=== PATIENT | female | born 1940 | race Caucasian/White ===

== ENCOUNTER 2018-07-10 14:21 | Emergency (ER) | payer MEDICARE, BC ==
[~2018-07-10] VITALS: Ht 167.6 cm; Wt 65.8 kg
--- NOTE | 2018-07-10 15:21 | PHYS DOC ---
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 Patient reports she had breakfast this morning but hadn't eaten since. Patient reports since onset of pain her symptoms have improved with pain almost subsided by the time they arrived to the ER. Patient denies nausea or vomiting. Patient denies fever or chills, urinary symptoms, swelling in extremities, chest pain or palpitations. Patient reports her and her did drive from [place] yesterday denies any symptoms yesterday or this morning. Patient reports she has colostomy left lower abdomen due to multiple polyps. Patient reports she has had more liquid stool output denies any bloody drainage. She reports she has been urinating without symptoms today. Review of Systems Review of Systems Constitutional: Denies fever or chills [] Respiratory: Denies cough or shortness of breath [] Cardiovascular: As chest pain or palpitations GI: Denies nausea, vomiting, bloody stools or diarrhea. Reports mid abdominal pain which has improved since onset : Denies dysuria or hematuria. Denies incontinence Musculoskeletal: Denies back pain or joint pain [] Integument: Denies rash or swelling Neurologic: Denies headache, focal weakness or sensory changes. Denies dizziness or lightheadedness All other systems were reviewed and found to be within normal limits, except as documented in this note. Allergies Allergies Allergies Coded Allergies Type Severity Reaction Last Updated Verified No Known Drug Allergies 07/10/18 No Physical Exam Physical Exam Constitutional: Well developed, well nourished, no acute distress, non-toxic appearance. [] HENT: Normocephalic, atraumatic, bilateral ears normal, mucous membranes pink/ moist, nose normal. [] Eyes: pupils equal, no nystagmus, conjunctiva normal, no discharge. [] Neck: Normal range of motion, no tenderness, supple Cardiovascular:Heart rate regular rhythm, no murmur [] Lungs & Thorax: Bilateral breath sounds clear to auscultation [] Abdomen: Bowel sounds normal, soft/nondistended with no rigidity, no tenderness on palpation, no masses, no pulsatile masses. Patient has colostomy left lower abdomen with green output- no blood visible. Surrounding skin at colostomy site NL Skin: Warm, dry, no erythema, no rash. [] Back: No tenderness, no CVA tenderness. [] Extremities: No tenderness, no cyanosis, no clubbing, ROM intact, no edema. [] Neurologic: Alert and oriented X 3, normal motor function, normal sensory function, no focal deficits noted. [] Psychologic: Affect normal, judgement normal, mood normal. [] Current Patient Data Vital Signs Vital Signs Date Time Temp Pulse Resp B/P (MAP) Pulse Ox O2 Delivery O2 Flow Rate FiO2 07/10/18 17:00 66 15 99 Room Air 07/10/18 14:25 98.0 98.0 Lab Values Laboratory Tests Test 07/10/18 14:42 07/10/18 15:28 Urine Collection Type Void Urine Color Yellow Urine Clarity Clear Urine pH 5.5 Urine Specific [place] 1.010 Urine Protein Negative mg/dL (NEG-TRACE) Urine Glucose (UA) Negative mg/dL (NEG) Urine Ketones (Stick) Negative mg/dL (NEG) Urine Blood Negative (NEG) Urine Nitrite Negative (NEG) Urine Bilirubin Negative (NEG) Urine Urobilinogen Dipstick 0.2 mg/dL (0.2 mg/dL) Urine Leukocyte Esterase Small (NEG) Urine RBC 0 /HPF (0-2) Urine WBC Occ /HPF (0-4) Urine Squamous Epithelial Cells Occ /LPF Urine Bacteria 0 /HPF (0-FEW) White Blood Count 5.2 x10^3/uL (4.0-11.0) Red Blood Count 3.74 x10^6/uL (3.50-5.40) Hemoglobin 11.1 g/dL (12.0-15.5) L Hematocrit 33.0 % (36.0-47.0) L Mean Corpuscular Volume 88 fL (79-100) Mean Corpuscular Hemoglobin 30 pg (25-35) Mean Corpuscular Hemoglobin Concent 34 g/dL (31-37) Red Cell Distribution Width 13.5 % (11.5-14.5) Platelet Count 151 x10^3/uL (140-400) Neutrophils (%) (Auto) 65 % (31-73) Lymphocytes (%) (Auto) 24 % (24-48) Monocytes (%) (Auto) 8 % (0-9) Eosinophils (%) (Auto) 3 % (0-3) Basophils (%) (Auto) 1 % (0-3) Neutrophils # (Auto) 3.4 x10^3uL (1.8-7.7) Lymphocytes # (Auto) 1.3 x10^3/uL (1.0-4.8) Monocytes # (Auto) 0.4 x10^3/uL (0.0-1.1) Eosinophils # (Auto) 0.1 x10^3/uL (0.0-0.7) Basophils # (Auto) 0.0 x10^3/uL (0.0-0.2) Sodium Level 136 mmol/L (136-145) Potassium Level 4.1 mmol/L (3.5-5.1) Chloride Level 100 mmol/L (98-107) Carbon Dioxide Level 24 mmol/L (21-32) Anion Gap 12 (6-14) Blood Urea Nitrogen 24 mg/dL (7-20) H Creatinine 1.9 mg/dL (0.6-1.0) H Estimated GFR (Cockcroft-Gault) 25.5 BUN/Creatinine Ratio 13 (6-20) Glucose Level 122 mg/dL (70-99) H Calcium Level 9.2 mg/dL (8.5-10.1) Total Bilirubin 0.5 mg/dL (0.2-1.0) Aspartate Amino Transferase (AST) 29 U/L (15-37) Alanine Aminotransferase (ALT) 21 U/L (14-59) Alkaline Phosphatase 80 U/L (46-116) Troponin I Quantitative 0.026 ng/mL (0.000-0.055) Total Protein 7.3 g/dL (6.4-8.2) Albumin 3.9 g/dL (3.4-5.0) Albumin/Globulin Ratio 1.1 (1.0-1.7) Lipase 367 U/L (73-393) Laboratory Tests 07/10/18 15:28 Laboratory Tests 07/10/18 15:28 EKG EKG [] Radiology/Procedures Radiology/Procedures PROCEDURE: ACUTE ABDOMEN SERIES EXAM: Frontal view of the chest, AP views of the abdomen in upright and supine positions. CLINICAL INDICATION: ER PATIENT. UMBILICAL PAIN. Hx COLON RESECTION, COLONOSTOMY, HERNIA REPAIR, HYSTERECTOMY, APPENDECTOMY, CARDIAC LOOP RECORDER PLACED 9 MONTHS AGO. NO PRIORS COMPARISON: None. FINDINGS and IMPRESSION: Heart is mildly enlarged. Atherosclerotic calcifications of the tortuous aorta are seen. Cardiac device projects over the anterior left chest. Mild emphysematous changes with hyperexpansion of the lungs. No focal parenchymal airspace opacity. No pleural effusion or pneumothorax. No abnormal small or large bowel dilatation, no evidence for bowel obstruction. Moderate colonic stool content. No abnormal soft tissue mass effect. Left lower quadrant ostomy is seen. No suspicious calcifications are seen. No free intraperitoneal gas. Electronically signed by: Stu Barahona MD (07/10/2018 5:36 PM) [id number] DICTATED and SIGNED BY: STU BARAHONA MD DATE: 07/10/18 173 Course & Med Decision Making Course & Med Decision Making Pertinent Labs and Imaging studies reviewed. (See chart for details) 1600: On re-eval pt continues to deny any abd. pain and is in no visible distress. Discussed test results with pt and her family- UA unremarkable and labs show renal function to be low which pt reports her last GFR was at 24 so similar today. During discussion patient's daughter voices concerns as patient' s abdominal pain had radiated around to her lower back. This was not mentioned during initial exam and so further discussion patient does state her pain and lower abdomen radiated into lower back at the time of onset. Patient denies any lower back pain at this time. Patient's family is wanting additional testing done to further rule out acute cause of patient's symptoms. EKG will be obtained as patient also had not mentioned during initial exam that she had implanted loop monitor and an patient's daughter is wanting her to have EKG while in the ER. With additional information orders placed for acute abdomen series, and EKG, and troponin added to blood test. 1750: Discussed results of all tests indepth with pt and her family. EKG with no acute ST elevation/STEMI and troponin NL at 0.026. Acute abd xray with no acute findings for obstruction- moderate stool and again discussed increasing fld intake while on trip. Discussed CBC with NL WBCs at 5.2 no left shift and H& H 11.1/33.0. Pt at this time pt reports she has hx of anemia which she hadn't disclosed during initial exam. Pt is uncertain what her H&H has been in past. Pt continues to deny any abd pain, CP, palpitations, or lower back pain. Pt while in ER had PVCs on the front desk monitor- she has implanted LOOP monitor for past hx of syncope but is uncertain of hx of PVCs. Discussed her following up with her back tender insulation board when she returns home to discuss this further. At this time patient and her family all feel comfortable with home discharge without further testing as patient remains pain-free. Discharge instructions were discussed and education provided on signs and symptoms to return to ER for. At time of discussion patient is in no visible distress and remains nontoxic in appearance. Pt's case and plan of care was discussed with Dr. Giraldo. Kodak Disclaimer Kodak Disclaimer This electronic medical record was generated, in whole or in part, using a voice recognition dictation system. Departure Departure Impression: Primary Impression: Abdominal pain Disposition: 01 HOME, SELF-CARE Condition: STABLE Patient Instructions: Abdominal Pain Additional Instructions: Drink plenty of water. If symptoms worsen or with any concerns return to Emergency Department for further care/evaluation. LILO GOMEZ APRN Jul 10, 2018 15:21
[2018-07-10 15:36] LABS: BASO % 1 % (0-3); EOS # 0.1 x10^3/uL (0.0-0.7); EOS % 3 % (0-3); HEMOGLOBIN 11.1 g/dL (12.0-15.5); LYMPH # 1.3 x10^3/uL (1.0-4.8); LYMPH % 24 % (24-48); MEAN CORPUSCULAR HEMOGLOBIN 30 pg (25-35); MEAN CORPUSCULAR HGB CONC 34 g/dL (31-37); MEAN CORPUSCULAR VOLUME 88 fL (79-100); MONO # 0.4 x10^3/uL (0.0-1.1); MONO % 8 % (0-9); NEUT # 3.4 x10^3uL (1.8-7.7); NEUT % 65 % (31-73); PLATELET COUNT 151 x10^3/uL (140-400); RED BLOOD COUNT 3.74 x10^6/uL (3.50-5.40); RED CELL DISTRIBUTION WIDTH 13.5 % (11.5-14.5); WHITE BLOOD COUNT 5.2 x10^3/uL (4.0-11.0)
[2018-07-10 15:38] LABS: BILIRUBIN,URINE NEGATIVE (NEG); CLARITY,URINE CLEAR; COLOR,URINE YELLOW; NITRITE,URINE NEGATIVE (NEG); PH,URINE 5.5; PROTEIN,URINE NEGATIVE (NEG-TRACE); UROBILINOGEN,URINE 0.2 mg/dL (0.2 mg/dL)
[2018-07-10 15:44] LABS: CALCIUM 9.2 mg/dL (8.5-10.1); CREATININE 1.9 mg/dL (0.6-1.0); GFR 25.5; POTASSIUM 4.1 mmol/L (3.5-5.1)
[2018-07-10 15:50] LABS: ALBUMIN 3.9 g/dL (3.4-5.0); ALBUMIN/GLOBULIN RATIO 1.1 (1.0-1.7); TOTAL BILIRUBIN 0.5 mg/dL (0.2-1.0); TOTAL PROTEIN 7.3 g/dL (6.4-8.2)
[2018-07-10 15:53] LABS: BACTERIA,URINE 0 /HPF (0-FEW); RBC,URINE 0 /HPF (0-2); SQUAMOUS EPITHELIAL CELL,UR OCC /LPF; WBC,URINE OCC /HPF (0-4)
--- NOTE | 2018-07-10 16:22 | EKG ---
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
[2018-07-10 16:30] VITALS: BP 135/62
--- NOTE | 2018-07-10 17:39 | RAD ---
EXAM: Frontal view of the chest, AP views of the abdomen in upright and supine positions. CLINICAL INDICATION: ER PATIENT. UMBILICAL PAIN. Hx COLON RESECTION, COLONOSTOMY, HERNIA REPAIR, HYSTERECTOMY, APPENDECTOMY, CARDIAC LOOP RECORDER PLACED 9 MONTHS AGO. NO PRIORS COMPARISON: None. FINDINGS and IMPRESSION: Heart is mildly enlarged. Atherosclerotic calcifications of the tortuous aorta are seen. Cardiac device projects over the anterior left chest. Mild emphysematous changes with hyperexpansion of the lungs. No focal parenchymal airspace opacity. No pleural effusion or pneumothorax. No abnormal small or large bowel dilatation, no evidence for bowel obstruction. Moderate colonic stool content. No abnormal soft tissue mass effect. Left lower quadrant ostomy is seen. No suspicious calcifications are seen. No free intraperitoneal gas. Electronically signed by: Stu Barahona MD (07/10/2018 5:36 PM) [id number]
== END 2018-07-10 17:54 | disposition home or self-care (01) ==
LOC: ER 14:21
DX: R10.9 Unspecified abdominal pain (principal); R19.7 Diarrhea, unspecified; N28.9 Disorder of kidney and ureter, unspecified; Z90.89 Acquired absence of other organs; Z90.710 Acquired absence of both cervix and uterus; Z98.890 Other specified postprocedural states; Z93.3 Colostomy status
CPT/HCPCS: 36415; 74022; 80053; 81001; 83690; 84484; 85025; 87086; 93005; 99285-25

== ENCOUNTER → 2019-11-03 | Outpatient (CLI) | payer MEDICARE, BC ==
--- NOTE | 2019-11-03 11:58 | CARD ---
MR#: [id number] Date of Study: 11/03/2019 Ordering Physician: JANNET LEYVA, Referring Physician: JANNET LEYVA, Tech: Marion Soni APPROVED REPORT EXAM: Two-dimensional and M-mode echocardiogram with Doppler and color Doppler. Other Information Quality : AverageHR: 86bpm Technically limited study due to body habitus. INDICATION Syncope 2D DIMENSIONS RVDd2.7 (2.9-3.5cm)Left Atrium(2D)3.7 (1.6-4.0cm) IVSd1.3 (0.7-1.1cm)Aortic Root(2D)4.3 (2.0-3.7cm) LVDd4.6 (3.9-5.9cm)LVOT Diameter2.4 (1.8-2.4cm) PWd1.1 (0.7-1.1cm)LVDs3.3 (2.5-4.0cm) FS (%) 28.7 %SV54.0 ml LVEF(%)55.3 (>50%) Aortic Valve AoV Peak Kaleb.117.3cm/sAoV VTI22.2cm AO Peak GR.5.5mmHgLVOT Peak Kaleb.81.6cm/s LVOT VTI 18.33cmAO Mean GR.3mmHg ROHAN (VMAX)2.66xo5JYW (VTI)3.73cm2 AI P 1/2 Yjfk936em Mitral Valve MV E Pwdvbxpd55.7cm/sMV DECEL FGPF483ye MV A Sjmartwg00.4cm/sMV E Mean Gr.1mmHg MV WZN63ffH/A Ratio0.5 MVA (PHT)2.96cm2 TDI E/Lateral E'9.7E/Medial E'8.8 Pulmonary Valve PV Peak Dxjlbvsz20.3cm/sPV Peak Grad.2mmHg Tricuspid Valve TR P. Rludshsw549yq/sRAP DXAJRGTM5imYe TR Peak Gr.78tnCcVUQX22ppLl Pulmonary Vein S1 Zyotqoqb14.1cm/sD2 Xvulptbw74.3cm/s PVa rutjjicr294vwez LEFT VENTRICLE The left ventricle is normal size. There is mild to moderate concentric left ventricular hypertrophy. The left ventricular systolic function is low normal. EF 50% There is mild global hypokinesis. Trans mitral Doppler flow pattern is Grade I-abnormal relaxation pattern. RIGHT VENTRICLE The right ventricle is normal size. There is normal right ventricular wall thickness. The right ventr icular systolic function is normal. ATRIA The left atrium size is normal. The right atrium size is normal. The interatrial septum is intact wit h no evidence for an atrial septal defect or patent foramen ovale as noted on 2-D or Doppler imaging. AORTIC VALVE The aortic valve is normal in structure and function. Doppler and Color Flow revealed mild to moderat e aortic regurgitation. There is no significant aortic valvular stenosis. MITRAL VALVE The mitral valve is normal in structure and function. There is no evidence of mitral valve prolapse. There is no mitral valve stenosis. Doppler and Color-flow revealed trace mitral regurgitation. TRICUSPID VALVE The tricuspid valve is normal in structure and function. Doppler and Color Flow revealed trace tricus pid regurgitation with an estimated PAP of 24 mmHg. There is no tricuspid valve stenosis. PULMONIC VALVE The pulmonic valve is not well visualized. Doppler and Color Flow revealed trace pulmonic valvular re gurgitation. There is no pulmonic valvular stenosis. GREAT VESSELS The aortic root is normal in size. The IVC is normal in size and collapses >50% with inspiration. PERICARDIAL EFFUSION There is no evidence of significant pericardial effusion. Critical Notification Critical Value: No <Conclusion> The left ventricular systolic function is low normal. EF 50% There is mild global hypokinesis. Doppler and Color Flow revealed mild to moderate aortic regurgitation. Technically limited study. Signed by : Coleman Starks, Electronically Approved : 11/03/2019 11:57:54
== END | disposition home or self-care (01) ==
LOC: ECHO 10:27
PROVIDERS: ATTEND Internal Medicine Cardiovascular Disease
DX: I35.1 Nonrheumatic aortic (valve) insufficiency (principal); I51.7 Cardiomegaly
CPT/HCPCS: 93306

== ENCOUNTER 2019-11-05 17:12 | Emergency (ER) | payer MEDICARE, BC ==
[~2019-11-05] VITALS: Ht 167.6 cm; Wt 70.4 kg
--- NOTE | 2019-11-05 18:47 | PHYS DOC ---
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 She has underlying history of chronic kidney disease. She states she woke this morning at 5 AM had difficulty focusing, have visual changes, last normal last night prior to bed. She states she went back to bed this morning awoke around 7:30 in her vision was normal. She denied any speech difficulty, unilateral numbness or tingling, no focal deficit. She does describe an episode of dizziness last week. Patient presented to the emergency department today given concern for possible stroke or TIA. Patient is on no blood thinning medications.She is currently asymptomatic at this time Review of Systems Review of Systems Constitutional: Denies fever or chills [] Eyes: blurry vision/visual disturbance this am however resolved, no redness, or eye pain [] Respiratory: Denies cough or shortness of breath [] Cardiovascular: No additional information not addressed in HPI [] GI: Denies abdominal pain, nausea, vomiting, bloody stools or diarrhea [] : Denies dysuria or hematuria [] Musculoskeletal: Denies back pain or joint pain [] Neurologic: Denies headache, focal weakness or sensory changes [] All other systems were reviewed and found to be within normal limits, except as documented in this note. Allergies Allergies Allergies Coded Allergies Type Severity Reaction Last Updated Verified No Known Drug Allergies 07/10/18 No Physical Exam Physical Exam Constitutional: Well developed, well nourished, no acute distress, non-toxic appearance. [] HENT: Normocephalic, atraumatic, bilateral external ears normal, oropharynx moist, no oral exudates, nose normal. [] Eyes: PERRLA, EOMI, conjunctiva normal, no discharge. [] Neck: Normal range of motion, no tenderness, supple, no stridor. [] Cardiovascular:Heart rate regular rhythm, no murmur [] Lungs & Thorax: Bilateral breath sounds clear to auscultation [] Abdomen: Bowel sounds normal, soft, no tenderness, no masses, no pulsatile masses. [] Skin: Warm, dry, no erythema, no rash. [] Extremities: No tenderness, no edema. [] Neurologic: Alert and oriented X 3, no focal deficits noted. [] Psychologic: Affect normal, judgement normal, mood normal. [] Current Patient Data Vital Signs Vital Signs Date Time Temp Pulse Resp B/P (MAP) Pulse Ox O2 Delivery O2 Flow Rate FiO2 11/05/19 19:00 98.6 86 16 148/75 (99) 96 Room Air 98.6 Lab Values Laboratory Tests Test 11/05/19 18:53 White Blood Count 6.4 x10^3/uL (4.0-11.0) Red Blood Count 3.86 x10^6/uL (3.50-5.40) Hemoglobin 11.3 g/dL (12.0-15.5) L Hematocrit 34.0 % (36.0-47.0) L Mean Corpuscular Volume 88 fL (79-100) Mean Corpuscular Hemoglobin 29 pg (25-35) Mean Corpuscular Hemoglobin Concent 33 g/dL (31-37) Red Cell Distribution Width 13.5 % (11.5-14.5) Platelet Count 162 x10^3/uL (140-400) Neutrophils (%) (Auto) 63 % (31-73) Lymphocytes (%) (Auto) 26 % (24-48) Monocytes (%) (Auto) 8 % (0-9) Eosinophils (%) (Auto) 2 % (0-3) Basophils (%) (Auto) 1 % (0-3) Neutrophils # (Auto) 4.1 x10^3/uL (1.8-7.7) Lymphocytes # (Auto) 1.7 x10^3/uL (1.0-4.8) Monocytes # (Auto) 0.5 x10^3/uL (0.0-1.1) Eosinophils # (Auto) 0.1 x10^3/uL (0.0-0.7) Basophils # (Auto) 0.0 x10^3/uL (0.0-0.2) Sodium Level 137 mmol/L (136-145) Potassium Level 4.0 mmol/L (3.5-5.1) Chloride Level 102 mmol/L (98-107) Carbon Dioxide Level 23 mmol/L (21-32) Anion Gap 12 (6-14) Blood Urea Nitrogen 32 mg/dL (7-20) H Creatinine 2.1 mg/dL (0.6-1.0) H Estimated GFR (Cockcroft-Gault) 22.7 BUN/Creatinine Ratio 15 (6-20) Glucose Level 116 mg/dL (70-99) H Calcium Level 8.7 mg/dL (8.5-10.1) Total Bilirubin Pending Aspartate Amino Transferase (AST) Pending Alanine Aminotransferase (ALT) Pending Alkaline Phosphatase Pending Total Protein Pending Albumin Pending Albumin/Globulin Ratio Pending Laboratory Tests 11/05/19 18:53 Laboratory Tests 11/05/19 18:53 EKG EKG [] Radiology/Procedures Radiology/Procedures [facility] [address] [place], [place] [id number] IMAGING REPORT Signed PATIENT: LORA EUGENE KACCOUNT: [id number] : 1940 LOCATION: ER AGE: 79 SEX: F EXAM STATUS: REG ER ORD. PHYSICIAN: ANISA JOHN MD REASON: Visual change - resolved PROCEDURE: CT HEAD WO CONTRAST EXAM: CT Head without IV contrast CLINICAL HISTORY: Visual Changes COMPARISON: None. TECHNIQUE: Routine CT of the head without contrast. Soft tissues and bone windows were reviewed. PQRS compliance statement - One or more of the following individualized dose reduction techniques were utilized for this study: 1. Automated exposure control 2. Adjustment of the mA and/or kV according to patient size 3. Use of iterative reconstruction technique FINDINGS: There is no evidence of hemorrhage, mass or extra-axial fluid collection. Vargas-white differentiation is maintained with no evidence of edema. Subcortical and periventricular white matter hypoattenuation likely changes of chronic small vessel disease. There is no mass effect or shift of the intracranial structures. The ventricles, basilar cisterns and cortical sulci are normal in size and configuration for the patients stated age. The cerebellum and brainstem are unremarkable. The calvarium demonstrates no evidence of fracture or focal lesion. There is normal aeration of the visualized paranasal sinuses and mastoid air cells. The visualized portions of the orbits are normal. IMPRESSION: 1. No evidence for acute intracranial process. 2. White matter changes likely chronic small vessel disease. Electronically signed by: Stu Matthews MD (11/05/2019 7:12 PM) [id number] DICTATED and SIGNED BY: STU MATTHEWS MD DATE: 11/05/191911 [] Course & Med Decision Making Course & Med Decision Making Pertinent Labs and Imaging studies reviewed. (See chart for details) [] 79-year-old female presents to the emergency department with complaints of visual changes. She has underlying history of chronic kidney disease. She states she woke this morning at 5 AM had difficulty focusing, have visual changes, last normal last night prior to bed. She states she went back to bed this morning awoke around 7:30 in her vision was normal. She denied any speech difficulty, unilateral numbness or tingling, no focal deficit. She does describe an episode of dizziness last week. Patient presented to the emergency department today given concern for possible stroke or TIA. Patient is on no blood thinning medications.She is currently asymptomatic at this time Labs/Imaging reviewed CT head negative for acute process - chronic small vessel changes ABCD2 score 2, low risk - discussed with patient Recommend follow up with PCP/Neurology referral/Opthomology referral ASA 325mg daily Dragon Disclaimer Dragon Disclaimer This electronic medical record was generated, in whole or in part, using a voice recognition dictation system. NIHSS Stroke Scale NIH Stroke Scale: NIH Stroke Scale Response (Comments) Value Level of Consciousness: 0 Alert/Responsive 0 LOC Questions: 0 Answers both correctly 0 LOC Commands: 0 Performs both tasks 0 Best Gaze: 0 Normal 0 Visual: 0 No visual loss 0 Facial Palsy: 0 Normal, symmetrical 0 Motor - Left Arm 0 No drift 0 Motor - Right Arm 0 No drift 0 Motor - Left Leg 0 No drift 0 Motor: Right Leg 0 No drift 0 Limb Ataxia: 0 Absent 0 Sensory: 0 No loss 0 Best Language: 0 Normal 0 Dysathria: 0 Normal 0 Extinction and Inattention: 0 Normal 0 Total 0 Departure Departure Impression: Primary Impression: Changes in vision Additional Impression: CKD (chronic kidney disease) Disposition: 01 HOME, SELF-CARE Condition: STABLE Referrals: ANDREAS VARNER DO (PCP) MERRILL SWEENEY MD Patient Instructions: Eye - Blurred Vision, Transient Ischemic Attack, Kfor-jw-Tbgu Additional Instructions: CT of the head without acute changes - chronic small vessel changes appreciated Creat 2.1 (kidney function) Recommend ASA 325mg po daily Referral for neurology follow up Recommend follow up with Optho for eye exam as well Low risk 90 day stroke risk of 3% Return to ER for returning symptoms, unilateral weakness/motor dysfunction, speech difficulty, vision changes Problem Qualifiers Additional Impression: CKD (chronic kidney disease) Chronic kidney disease stage: stage 3 (moderate) Qualified Codes: N18.3 - Chronic kidney disease, stage 3 (moderate) ANISA JOHN MD Nov 05, 2019 18:47
[2019-11-05 18:59] LABS: BASO % 1 % (0-3); EOS # 0.1 x10^3/uL (0.0-0.7); EOS % 2 % (0-3); HEMOGLOBIN 11.3 g/dL (12.0-15.5); LYMPH # 1.7 x10^3/uL (1.0-4.8); LYMPH % 26 % (24-48); MEAN CORPUSCULAR HEMOGLOBIN 29 pg (25-35); MEAN CORPUSCULAR HGB CONC 33 g/dL (31-37); MEAN CORPUSCULAR VOLUME 88 fL (79-100); MONO # 0.5 x10^3/uL (0.0-1.1); MONO % 8 % (0-9); NEUT # 4.1 x10^3/uL (1.8-7.7); NEUT % 63 % (31-73); PLATELET COUNT 162 x10^3/uL (140-400); RED BLOOD COUNT 3.86 x10^6/uL (3.50-5.40); RED CELL DISTRIBUTION WIDTH 13.5 % (11.5-14.5); WHITE BLOOD COUNT 6.4 x10^3/uL (4.0-11.0)
[2019-11-05 19:00] VITALS: BP 148/75
--- NOTE | 2019-11-05 19:14 | RAD ---
EXAM: CT Head without IV contrast CLINICAL HISTORY: Visual Changes COMPARISON: None. TECHNIQUE: Routine CT of the head without contrast. Soft tissues and bone windows were reviewed. PQRS compliance statement - One or more of the following individualized dose reduction techniques were utilized for this study: 1. Automated exposure control 2. Adjustment of the mA and/or kV according to patient size 3. Use of iterative reconstruction technique FINDINGS: There is no evidence of hemorrhage, mass or extra-axial fluid collection. Vargas-white differentiation is maintained with no evidence of edema. Subcortical and periventricular white matter hypoattenuation likely changes of chronic small vessel disease. There is no mass effect or shift of the intracranial structures. The ventricles, basilar cisterns and cortical sulci are normal in size and configuration for the patients stated age. The cerebellum and brainstem are unremarkable. The calvarium demonstrates no evidence of fracture or focal lesion. There is normal aeration of the visualized paranasal sinuses and mastoid air cells. The visualized portions of the orbits are normal. IMPRESSION: 1. No evidence for acute intracranial process. 2. White matter changes likely chronic small vessel disease. Electronically signed by: Stu Barahona MD (11/05/2019 7:12 PM) [id number]
[2019-11-05 19:17] LABS: CALCIUM 8.7 mg/dL (8.5-10.1); CREATININE 2.1 mg/dL (0.6-1.0); GFR 22.7
[2019-11-05 19:21] LABS: ALBUMIN 4.1 g/dL (3.4-5.0); ALBUMIN/GLOBULIN RATIO 1.2 (1.0-1.7); TOTAL BILIRUBIN 0.4 mg/dL (0.2-1.0); TOTAL PROTEIN 7.6 g/dL (6.4-8.2)
--- NOTE | 2019-11-08 06:11 | EKG ---
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
== END 2019-11-05 19:47 | disposition home or self-care (01) ==
LOC: ER 17:12
DX: H53.9 Unspecified visual disturbance (principal); N18.3 Chronic kidney disease, stage 3 (moderate); R42 Dizziness and giddiness; Z90.89 Acquired absence of other organs; Z90.710 Acquired absence of both cervix and uterus; Z98.890 Other specified postprocedural states
CPT/HCPCS: 36415; 70450; 80053; 85025; 93005; 99285

== ENCOUNTER → 2019-12-24 | Outpatient (CLI) | payer MEDICARE, BC ==
[2019-12-24 08:39] LABS: BASO % 1 % (0-3); EOS # 0.2 x10^3/uL (0.0-0.7); EOS % 3 % (0-3); HEMATOCRIT 36.1 % (36.0-47.0); HEMOGLOBIN 11.7 g/dL (12.0-15.5); LYMPH # 1.7 x10^3/uL (1.0-4.8); LYMPH % 28 % (24-48); MEAN CORPUSCULAR HEMOGLOBIN 29 pg (25-35); MEAN CORPUSCULAR HGB CONC 32 g/dL (31-37); MEAN CORPUSCULAR VOLUME 89 fL (79-100); MONO # 0.4 x10^3/uL (0.0-1.1); MONO % 7 % (0-9); NEUT # 3.6 x10^3/uL (1.8-7.7); NEUT % 62 % (31-73); PLATELET COUNT 191 x10^3/uL (140-400); RED BLOOD COUNT 4.06 x10^6/uL (3.50-5.40); RED CELL DISTRIBUTION WIDTH 13.8 % (11.5-14.5); WHITE BLOOD COUNT 5.8 x10^3/uL (4.0-11.0)
[2019-12-24 09:01] LABS: ALBUMIN 4.2 g/dL (3.4-5.0); ALBUMIN/GLOBULIN RATIO 1.3 (1.0-1.7); CREATININE 2.5 mg/dL (0.6-1.0); GFR 18.5; POTASSIUM 4.6 mmol/L (3.5-5.1); TOTAL BILIRUBIN 0.4 mg/dL (0.2-1.0); TOTAL PROTEIN 7.5 g/dL (6.4-8.2)
[2019-12-24 09:03] LABS: CHOLESTEROL/HDL RATIO 1.9
== END ==
LOC: LAB 08:16
PROVIDERS: ATTEND Psychiatry & Neurology Neurology
DX: G45.9 Transient cerebral ischemic attack, unspecified (principal)
CPT/HCPCS: 36415; 80053; 80061; 85025

== ENCOUNTER → 2019-12-28 | Outpatient (CLI) | payer MEDICARE, BC ==
--- NOTE | 2019-12-28 10:40 | KCIC ---
BRAIN W/O CONTRAST History: CT November 05, 2019 Technique: Multiplanar, multi sequential MR imaging was performed of the brain without contrast. Comparison: November 05, 2019 Findings: No acute infarct. No intracranial hemorrhage. No mass effect. No hydrocephalus. Moderate T2 such FLAIR hyperintensities within the hemispheric white matter, most often due to chronic microvascular ischemia. Imaged orbits are unremarkable. Left posterior maxillary sinus mucous retention cyst or polyp. Mastoid air cells are clear. Impression: 1. No acute intracranial abnormality. 2. Moderate sequelae of chronic microvascular ischemia. Electronically signed by: Thang Perez DO (12/28/2019 10:37 AM) [id number]
== END | disposition home or self-care (01) ==
LOC: KCIC MRI 09:24
PROVIDERS: ATTEND Psychiatry & Neurology Neurology
DX: I69.80 Unspecified sequelae of other cerebrovascular disease (principal)
CPT/HCPCS: 70551

== ENCOUNTER → 2020-01-24 | Outpatient (CLI) | payer MEDICARE, BC ==
--- NOTE | 2020-01-24 11:08 | RAD ---
Clinical Indications: Transient ischemic attack. Exam : Carotid Duplex with Grayscale Ultrasound and Spectral and Color Doppler Analysis: PQRS Compliance Statement - Stenosis calculations for CT, MR and conventional angiography are based upon measurement of the distal ICA diameter in accordance with the NASCET methodology. Stenosis calculations for carotid ultrasound studies are derived from validated velocity criteria which are known to correlate with the NASCET methodology. Comparison study: Noncontrast head CT 11/05/2019 and MRI brain 12/28/2019.. Findings: The common, internal and external carotid arteries were examined by grayscale, color and spectral Doppler ultrasound. There is no evidence of atherosclerotic disease or significant stenosis in the visualized vessels. Flow in both vertebral arteries was antegrade and normal. The following are the velocities and ratios in the carotid arteries on both sides: RIGHT ICA PV: 82cm/sec RIGHT CCA PV: 82cm/sec RIGHT ICA ED: 60cm/sec RIGHT IC/CCPV: 1.0 RIGHT VERTEBRAL: antegrade flow RIGHT % STENOSIS: 0 LEFT ICA PV: 83cm/sec LEFT CCA PV: 72cm/sec LEFT ICA ED: 15cm/sec LEFT IC/CCPV: 1.2 LEFT VERTEBRAL: antegrade flow LEFT % STENOSIS: 0 <50% ICA Stenosis: PSV < 125cm/s (EDV < 40cm/s; SVR < 2.0) 50-69% ICA Stenosis: PSV < 125-229cm/s (EDV 40-99cm/s; SVR 2.0-3.9) >70% ICA Stenosis: PSV > 230cm/s (EDV >100cm/s; SVR >4.0) Impression: Normal bilateral carotid and vertebral artery spectral and color Doppler analysis exam. No evidence of hemodynamically significant stenosis. Electronically signed by: Omar Colmenares MD (01/24/2020 11:06 AM) [id number]
== END | disposition home or self-care (01) ==
LOC: US 09:55
PROVIDERS: ATTEND Psychiatry & Neurology Neurology
DX: G45.9 Transient cerebral ischemic attack, unspecified (principal)
CPT/HCPCS: 93880

== ENCOUNTER 2020-05-07 18:00 | Inpatient (IN) | payer MEDICARE, BC ==
[~2020-05-07] VITALS: Ht 167.6 cm; Wt 74.8 kg
--- NOTE | 2020-05-07 19:50 | PHYS DOC ---
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 HERNIA, COLOSTMY, LOOP HAND WELT BUTTER Smoking Status: Never Smoker Alcohol Use: None Drug Use: None General Adult EDM: Chief Complaint: WEAKNESS/GENERALIZED HPI: HPI: Patient is a 80 year old female who presents to the emergency department with complaints of intermittent near syncope spells just prior to arrival. Patient states that approximately 11 AM today she felt a pressure in her head while she was standing in the kitchen with the feeling that she was going to pass out, walked to a nearby chair and sat down stating that the feeling that she was going to pass out went away within a few seconds. Patient states that since the first 1 at 11 AM she has had 5 more all while she was sitting and watching TV throughout the day. Concerned that she may be having some sort of heart problem or possibly a stroke, presented to the ER. During the nursing triage, patient had an additional episode that she states was similar to her previous 6 episodes of the day. The patient happened to be attached to a awake overnight monitor and there was no cardiac activity changes noted during her near syncopal episode complaints. Patient denies any fever or chills, denies any exposure to the COVID-19 virus nor wishes to be checked today for the COVID-19 virus. Patient denies any visual changes during her near syncopal episodes. Denies any congestion or sore throat cough or shortness of breath. Patient denies any chest pains or chest palpitations now or during her near syncopal episodes. She denies any abdominal pain, nausea, vomiting, diarrhea or constipation. Patient denies any back pains skin rashes headaches focal weaknesses or sensory changes at this time. Patient describes her near syncopal episodes as there is a pres sure in her head and she feels like she may pass out. Patient denies any other feelings or aches or pains. Patient denies any swelling of her glands, any depressions, anxieties, homicidal or suicidal ideations. Patient states no one else in her home is having the same symptoms that she. Review of Systems: Review of Systems: Constitutional: Denies fever or chills. Denies exposure to the COVID-19 virus. Eyes: Denies change in visual acuity. HENT: Denies nasal congestion or sore throat. Respiratory: Denies cough or shortness of breath. Cardiovascular: Denies chest pain or edema. GI: Denies abdominal pain, nausea, vomiting, bloody stools or diarrhea. : Denies dysuria. Musculoskeletal: Denies back pain or joint pain. Integument: Denies rash. Neurologic: Denies headache, focal weakness or sensory changes. Complains of a intermittent pressure in her head with a feeling that she is going to pass out that lasts only a few seconds then returns to normal. Lymphatic: Denies swollen glands. Psychiatric: Denies depression or anxiety. Denies homicidal or suicidal ideation. Heart Score: Risk Factors: Risk Factors: DM, Current or recent (<one month) smoker, HTN, HLP, family history of CAD, obesity. Risk Scores: Score 0 - 3: 2.5% MACE over next 6 weeks - Discharge Home Score 4 - 6: 20.3% MACE over next 6 weeks - Admit for Clinical Observation Score 7 - 10: 72.7% MACE over next 6 weeks - Early Invasive Strategies Allergies: Allergies: Allergies Coded Allergies Type Severity Reaction Last Updated Verified No Known Drug Allergies 07/10/18 No Physical Exam: PE: Constitutional: Well developed, well nourished, no acute distress, non-toxic appearance. HENT: Normocephalic, atraumatic, bilateral external ears normal, oropharynx moist, no oral exudates, nose normal. Eyes: PERRLA, EOMI, conjunctiva normal, no discharge. Pupils 5 mm. Neck: Normal range of motion, no tenderness, supple, no stridor. Cardiovascular:Heart rate regular rhythm, no murmur heart sounds S1-S2, no abnormalities per auscultation. Lungs & Thorax: Bilateral breath sounds clear to auscultation all lung gonzalez. Abdomen: Bowel sounds normal, soft, no tenderness, no masses, no pulsatile mass es. Skin: Warm, dry, no erythema, no rash. Back: No tenderness, no CVA tenderness. Extremities: No tenderness, no cyanosis, no clubbing, ROM intact, no edema. Neurologic: Alert and oriented X 3, normal motor function, normal sensory function, no focal deficits noted. Psychologic: Affect normal, judgement normal, mood normal. EKG: EKG: A 12-lead EKG was performed at 1938 per ED nursing staff. Showed a heart rate of 71, sinus arrhythmia with out ectopy noted. The EKG was interpreted by Dr. Yanez, no STEMI noted, no ACS noted. Radiology/Procedures: Radiology/Procedures: PROCEDURE: CT HEAD WO CONTRAST CT HEAD WO CONTRAST History:Near syncopal episode prior to arrival Comparison: 11/05/2019 Technique: Noncontrast CT imaging was performed of the head. Exposure: One or more of the following individualized dose reduction techniques were utilized for this examination: 1. Automated exposure control 2. Adjustment of the mA and/or kV according to patient size 3. Use of iterative reconstruction technique. Findings: No acute extra-axial or parenchymal hemorrhage is identified. There is no significant intra-axial mass effect, midline shift, or extra-axial fluid collection. The sanchez-white differentiation of the major vascular territories is preserved. There is scattered at least mild ill-defined low-density of the supratentorial parenchyma bilaterally. The ventricles, sulci, and cisterns are within normal limits in size and configuration. The mastoid air cells and the visualized paranasal sinuses are aerated. No acute calvarial abnormality is identified. Impression: 1. No acute intracranial abnormality is identified. 2. There is some scattered ill-defined low-density of the supratentorial parenchyma, nonspecific findings more commonly due to chronic microvascular ischemic disease in a patient this age. MRI would more accurately evaluate for more recent ischemia if this is of clinical concern. Electronically signed by: Thiago Ramirez MD (05/07/2020 8:16 PM) [facility] DICTATED and SIGNED BY: THIAGO RAMIREZ MD DATE: 05/07/202015 PROCEDURE: CHEST PA & LATERAL CHEST PA LATERAL History: Near syncope Comparison: July 10, 2018 Findings: 2 views of the chest are submitted. Pericardial cardiac silhouette is again enlarged. There is again tortuous thoracic aorta, atherosclerotic calcification near arch. Mild linear opacity near the right lung base is unchanged, likely fibrotic change. Lung markings at the right lung base are overall similar. There is no significant dependent pleural fluid, lobar consolidation, or pneumothorax. There is likely degree of emphysema. Impression: 1. No acute radiographic abnormality is identified. There is suspected emphysema. Electronically signed by: Thiago Ramirez MD (05/07/2020 8:09 PM) [facility] DICTATED and SIGNED BY: THIAGO RAMIREZ MD DATE: 05/07/202008 Course & Med Decision Making: Course & Med Decision Making Pertinent Labs and Imaging studies reviewed. (See chart for details) 80-year-old female presents to the emergency department with complaints of near syncopal episodes x 6 prior to arrival. Patient also had 1 near syncopal episode during nursing triage. Vital signs were reviewed, labs ordered CAT scan and chest x-ray ordered non-concerning for acute infectious process, imaging interpreted by radiologist non-concerning for acute processes. Patient did not have any syncopal episodes nor near syncopal episodes during her ER stay after the one that presented during nursing triage. The patient is wearing a Holter monitor, patient states that she sees museum guide Dr. Gomez who remotely monitors her cardiac activity. Patient did not present with any strokelike symptoms or concerns. Discussed patient case with Neena Rooney who agreed to admit patient to the telemetry unit with a cardiology consult. Discussed admission with patient who was amenable to this plan, patient admitted to telemetry with diagnosis of near syncope and renal insufficiency. Kodak Disclaimer: Kodak Disclaimer: This electronic medical record was generated, in whole or in part, using a voice recognition dictation system. Departure Departure Impression: Primary Impression: Near syncope Additional Impression: Renal insufficiency Disposition: ADMITTED INPATIENT Admitting Physician: NEENA (Dr. Rooney) Condition: GUARDED Referrals: ANDREAS VARNER DO (PCP) Justicifation of Admission Dx: Justifications for Admission: Justification of Admission Dx: Yes Comments: Near syncopal episodes, renal insufficiency. YAIR LAYTON APRN May 07, 2020 19:50
[2020-05-07 20:06] LABS: BASO % 1 % (0-3); EOS # 0.1 x10^3/uL (0.0-0.7); EOS % 1 % (0-3); HEMATOCRIT 33.8 % (36.0-47.0); HEMOGLOBIN 11.3 g/dL (12.0-15.5); LYMPH # 1.1 x10^3/uL (1.0-4.8); LYMPH % 19 % (24-48); MEAN CORPUSCULAR HEMOGLOBIN 30 pg (25-35); MEAN CORPUSCULAR HGB CONC 33 g/dL (31-37); MEAN CORPUSCULAR VOLUME 88 fL (79-100); MONO # 0.5 x10^3/uL (0.0-1.1); MONO % 8 % (0-9); NEUT # 3.9 x10^3/uL (1.8-7.7); NEUT % 71 % (31-73); PLATELET COUNT 166 x10^3/uL (140-400); RED BLOOD COUNT 3.82 x10^6/uL (3.50-5.40); RED CELL DISTRIBUTION WIDTH 13.6 % (11.5-14.5); WHITE BLOOD COUNT 5.5 x10^3/uL (4.0-11.0)
--- NOTE | 2020-05-07 20:11 | RAD ---
CHEST PA LATERAL History: Near syncope Comparison: July 10, 2018 Findings: 2 views of the chest are submitted. Pericardial cardiac silhouette is again enlarged. There is again tortuous thoracic aorta, atherosclerotic calcification near arch. Mild linear opacity near the right lung base is unchanged, likely fibrotic change. Lung markings at the right lung base are overall similar. There is no significant dependent pleural fluid, lobar consolidation, or pneumothorax. There is likely degree of emphysema. Impression: 1. No acute radiographic abnormality is identified. There is suspected emphysema. Electronically signed by: Tonio Huynh MD (05/07/2020 8:09 PM) [facility]ITALB[facility]
[2020-05-07 20:16] LABS: PROTHROMBIN TIME PATIENT 14.3 SEC (11.7-14.0)
[2020-05-07 20:19] LABS: CALCIUM 8.8 mg/dL (8.5-10.1); CREATININE 1.8 mg/dL (0.6-1.0); POTASSIUM 4.5 mmol/L (3.5-5.1)
--- NOTE | 2020-05-07 20:19 | RAD ---
CT HEAD WO CONTRAST History:Near syncopal episode prior to arrival Comparison: 11/05/2019 Technique: Noncontrast CT imaging was performed of the head. Exposure: One or more of the following individualized dose reduction techniques were utilized for this examination: 1. Automated exposure control 2. Adjustment of the mA and/or kV according to patient size 3. Use of iterative reconstruction technique. Findings: No acute extra-axial or parenchymal hemorrhage is identified. There is no significant intra-axial mass effect, midline shift, or extra-axial fluid collection. The sanchez-white differentiation of the major vascular territories is preserved. There is scattered at least mild ill-defined low-density of the supratentorial parenchyma bilaterally. The ventricles, sulci, and cisterns are within normal limits in size and configuration. The mastoid air cells and the visualized paranasal sinuses are aerated. No acute calvarial abnormality is identified. Impression: 1. No acute intracranial abnormality is identified. 2. There is some scattered ill-defined low-density of the supratentorial parenchyma, nonspecific findings more commonly due to chronic microvascular ischemic disease in a patient this age. MRI would more accurately evaluate for more recent ischemia if this is of clinical concern. Electronically signed by: Tonio Huynh MD (05/07/2020 8:16 PM) [facility]
[2020-05-07 20:25] LABS: ALBUMIN/GLOBULIN RATIO 1.1 (1.0-1.7); TOTAL BILIRUBIN 0.4 mg/dL (0.2-1.0); TOTAL PROTEIN 7.5 g/dL (6.4-8.2)
[2020-05-07 20:32] LABS: CREATINE KINASE 46 U/L (26-192)
[2020-05-08] VITALS (9 sets, daily range): BP systolic 106–161; BP diastolic 50–91
[2020-05-08] MEDS ORDERED: LIDOCAINE 1% PF 2 ML VIAL. INJ ONE (01:00)
[2020-05-08] MEDS ORDERED: CEPH250C PO (02:08)
[2020-05-08] MEDS ORDERED: LACT1CAP25 PO (02:10)
[2020-05-08] MEDS ORDERED: MV-M1TAB36 PO (05:53)
--- NOTE | 2020-05-08 10:15 | PDOC2 ---
FLORIDALMA SEXTON JERSEY KNITTER 05/08/20 1015: CARDIAC CONSULT DATE OF CONSULT Date of Consult DATE: 05/08/20 TIME: 10:08 REASON FOR CONSULT Reason for Consult: Near syncope REFERRING PHYSICIAN Referring Physician: Dr. Corey SOURCE Source: Chart review, Patient HISTORY OF PRESENT ILLNESS HISTORY OF PRESENT ILLNESS This is an 80 yo female who presented with near syncope spells. Yesterday afternoon, patient reports she was standing in the kitchen and began feeling dizzy, like she could pass out. Had a pressure sensation in her head. She sat down and symptoms improved. Patient continued to have a reoccurrence of dizziness throughout the afternoon while sitting and watching television. Patient reports her blood pressure to be within normal range during this period. Due to recurrent dizziness, patient decided to come to the ED for further evaluation and treatment. Patient denies any chest pain, shortness of breath, diaphoresis, or nausea/vomiting. Patient reports near syncope, but did not completely lose consciousness. Denies any recent illness/fevers. Patient has ILR implanted due to history of syncopal episode. Device checked noted multiple periods of profound bradycardia yesterday afternoon with HR recorded in the mid 20's. No bradycardia has been noted on tele, although she has had no further dizziness since arrival to the unit. She is on no AV judit blocking agents at home. PAST MEDICAL HISTORY Cardiovascular: Syncope Heme/Onc: Anemia NOS, Other (ulcerative colitis ) Renal/: Chronic renal insuff PAST SURGICAL HISTORY Past Surgical History: Appendectomy, Hysterectomy, Other (ILR, colostomy ) FAMILY HISTORY Family History: Stroke SOCIAL HISTORY Smoke: No ALCOHOL: none Drugs: None Lives: with Family ALLERGIES ALLERGIES: Coded Allergies: No Known Drug Allergies (Unverified , 07/10/18) ROS Review of System 14 point ROS conducted with pertinent positives noted above in HPI PHYSICAL EXAM General: Alert, Oriented X3, Cooperative, No acute distress HEENT: Atraumatic, Mucous membr. moist/pink Lungs: Clear to auscultation, Normal air movement Heart: Regular rate, Normal S1, Other (2/6 systolic murmur) Abdomen: Normal bowel sounds, Soft Extremities: No edema, Normal pulses Skin: No significant lesion Neuro: Normal speech, Sensation intact Psych/Mental Status: Mental status NL, Mood NL MUSCULOSKELETAL: Osteoarthritic changes both hands VITALS/I&O VITALS/I&O: Vital Signs Date Time Temp Pulse Resp B/P (MAP) Pulse Ox O2 Delivery O2 Flow Rate FiO2 05/08/20 08:00 Room Air 05/08/20 07:02 80 106/73 (84) 05/08/20 07:00 97.7 16 96 97.7 I & O 0 05/07/20 05/07/20 05/08/20 15:00 23:00 07:00 Intake Total 100 ml Balance 100 ml LABS Lab: Laboratory Tests Test 05/07/20 19:34 White Blood Count 5.5 x10^3/uL (4.0-11.0) Red Blood Count 3.82 x10^6/uL (3.50-5.40) Hemoglobin 11.3 g/dL (12.0-15.5) L Hematocrit 33.8 % (36.0-47.0) L Mean Corpuscular Volume 88 fL (79-100) Mean Corpuscular Hemoglobin 30 pg (25-35) Mean Corpuscular Hemoglobin Concent 33 g/dL (31-37) Red Cell Distribution Width 13.6 % (11.5-14.5) Platelet Count 166 x10^3/uL (140-400) Neutrophils (%) (Auto) 71 % (31-73) Lymphocytes (%) (Auto) 19 % (24-48) L Monocytes (%) (Auto) 8 % (0-9) Eosinophils (%) (Auto) 1 % (0-3) Basophils (%) (Auto) 1 % (0-3) Neutrophils # (Auto) 3.9 x10^3/uL (1.8-7.7) Lymphocytes # (Auto) 1.1 x10^3/uL (1.0-4.8) Monocytes # (Auto) 0.5 x10^3/uL (0.0-1.1) Eosinophils # (Auto) 0.1 x10^3/uL (0.0-0.7) Basophils # (Auto) 0.0 x10^3/uL (0.0-0.2) Prothrombin Time 14.3 SEC (11.7-14.0) H Prothrombin Time INR 1.2 (0.8-1.1) H Activated Partial Thromboplast Time 29 SEC (24-38) Sodium Level 134 mmol/L (136-145) L Potassium Level 4.5 mmol/L (3.5-5.1) Chloride Level 99 mmol/L (98-107) Carbon Dioxide Level 26 mmol/L (21-32) Anion Gap 9 (6-14) Blood Urea Nitrogen 28 mg/dL (7-20) H Creatinine 1.8 mg/dL (0.6-1.0) H Estimated GFR (Cockcroft-Gault) 27.0 BUN/Creatinine Ratio 16 (6-20) Glucose Level 118 mg/dL (70-99) H Calcium Level 8.8 mg/dL (8.5-10.1) Total Bilirubin 0.4 mg/dL (0.2-1.0) Aspartate Amino Transferase (AST) 27 U/L (15-37) Alanine Aminotransferase (ALT) 21 U/L (14-59) Alkaline Phosphatase 76 U/L (46-116) Creatine Kinase 46 U/L (26-192) Creatine Kinase MB (Mass) < 0.5 ng/mL (0.0-3.6) Creatine Kinase MB Relative Index % (0-4) Troponin I Quantitative < 0.017 ng/mL (0.000-0.055) OQ-Cso-Z-Type Natriuretic Peptide 860 pg/mL (0-449) H Total Protein 7.5 g/dL (6.4-8.2) Albumin 4.0 g/dL (3.4-5.0) Albumin/Globulin Ratio 1.1 (1.0-1.7) Laboratory Tests 05/07/20 19:34 Laboratory Tests 05/07/20 19:34 ECHOCARDIOGRAM ECHOCARDIOGRAM <Conclusion> The left ventricular systolic function is low normal. EF 50% There is mild global hypokinesis. Doppler and Color Flow revealed mild to moderate aortic regurgitation. Technically limited study. DATE: 11/03/19 1146 ASSESSMENT/PLAN ASSESSMENT/PLAN 1. Near syncope, recurrent; CT head without acute findings. Echo 11/18 with LVEF 50%, mild-moderate AR. Most probably secondary to profound bradycardia 2. H/o syncope s/p ILR ([employer]) Device check 03/30/20 without significant arrhythmias 3. SSS; device check today notable for periods of profound bradycardia yesterday afternoon with HR in the mid 20's, correlating with patient symptoms. 4. CKD; Cr stable per review Recommendations Given near syncopal episode and severe symptomatic bradycardia noted on event recordings, recommend PPM implantation for SSS. R/b/a discussed with patient and and they are agreeable to proceed. Will plan for implantation tomorrow. NPO celina LOW. Outpatient MPI scheduled Supportive care JANNET LEYVA MD 05/08/20 1726: CARDIAC CONSULT ASSESSMENT/PLAN ASSESSMENT/PLAN Patient seen and examined. Agree with WHEAT INSPECTOR's assessment and plan. Recurrent episodes of near syncope and severe bradycardia on loop recorder interrogations consistent with sick sinus syndrome. Plan for loop recorder explantation and permanent pacemaker implantation tomorrow. Risks and benefits were explained and she is agreeable. Recent 2D echo showed LVEF 50%. Plan outpatient ischemic evaluation. Thank you for your consultation FLORIDALMA SEXTON APRN May 08, 2020 10:15 JANNET LEYVA MD May 08, 2020 17:26
--- NOTE | 2020-05-08 12:26 | SSS ---
ADMIT DATE: SHORT STAY SUMMARY CHIEF COMPLAINT: Weakness. HISTORY OF PRESENT ILLNESS: The patient is a pleasant 80-year-old female who has been having intermittent problems with syncopal episodes for quite some time, is to the point that she now has a loop recorder. Once again, she became weak. She had a near syncopal episode. She was admitted overnight for observation. We really have not found anything. She is currently being examined on the telemetry floor, wants to go home. I plan to discharge if okay with Cardiology. PAST MEDICAL HISTORY: Syncope, loop recorder, renal insufficiency, appendectomy, hysterectomy, abdominal hernia, colostomy, loop cardiac monitoring. ALLERGIES: None. FAMILY HISTORY: Hypertension. SOCIAL HISTORY: She does not drink, smoke or take drugs. She is retired. MEDICATIONS: Reviewed, please refer to the MRAD. REVIEW OF SYSTEMS: GENERAL: No history of weight change, weakness or fevers. SKIN: No bruising, hair changes or rashes. EYES: No blurred, double or loss of vision. NOSE AND THROAT: No history of nosebleeds, hoarseness or sore throat. HEART: No history of palpitations, chest pain or shortness of breath on exertion. LUNGS: Denies cough, hemoptysis, wheezing or shortness of breath. GASTROINTESTINAL: Denies changes in appetite, nausea, vomiting, diarrhea or constipation. GENITOURINARY: No history of frequency, urgency, hesitancy or nocturia. NEUROLOGIC: Denies history of numbness, tingling, tremor or weakness. PSYCHIATRIC: No history of panic, anxiety or depression. ENDOCRINE: No history of heat or cold intolerance, polyuria or polydipsia. EXTREMITIES: Denies muscle weakness, joint pain, pain on walking or stiffness. PHYSICAL EXAMINATION: VITALS: Within normal limits and are stable. GENERAL: No apparent distress. Alert and oriented. HEENT: Normal cephalic atraumatic, external auditory canals are patent EYES: Extraocular muscles are intact, pupils are equally round and reactive to light and accommodation MUSCULOSKELETAL: Well developed, well nourished, good range of motion ENDOCRINE: No thyromegaly was palpated LYMPHATICS: No cervical chain or axillary nodes were noted HEMATOPOIETIC: No bruising NECK: Supple, no JVD, no thyromegaly was noted. LUNGS: Clear to auscultation in all lung gonzalez without rhonchi or wheezing. HEART: RRR, S1, S2 present. Peripheral pulses intact, no obvious murmurs were noted. ABDOMEN: Soft, nontender. Positive bowel sounds no organomegaly, normal bowel sounds. EXTREMITIES: Without any cyanosis, clubbing, or edema. Pedal pulses intact, Homans sign is negative. NEUROLOGIC: Normal speech, normal tone. A & O x3, moves all extremities, no obvious focal deficits. PSYCHIATRIC: Normal affect, normal mood. Stable. SKIN: No ulcerations or rashes, good skin turgor, no jaundice. VASCULAR: Good capillary refill, neurovascular bundle appears to be intact. ASSESSMENT AND PLAN: Resolving near syncope, suspect possible vasovagal. Clinically, she looks great. We have monitored her. We have consulted Cardiology. I am not aware of any other further workup being done. She already has a loop recording monitoring. We will go ahead and discharge to home if okay with consultants. DISPOSITION: Home. ACTIVITY: As tolerated. DIET: Low sodium. MEDICATIONS: Please see MRAD. TOTAL TIME: 32 minutes. KATHY SCHULTZ DO DR: [email or web address] JOB#: [id number] / [id number]
--- NOTE | 2020-05-08 14:06 | NUR ---
SS following for discharge planning. SS reviewed pt chart and discussed with pt RN. Pt is from home with spouse and is currently on room air. Discharge order on the chart for home with self care pending Cardiology assessment. SS will continue to follow for discharge planning.
[2020-05-09] VITALS (14 sets, daily range): BP systolic 107–167; BP diastolic 57–88
[2020-05-09] MEDS ORDERED: ceFAZolin SODIUM IV Push 1 GM VIAL. IVP ONE ×3 (06:00→15:00)
[2020-05-09] MEDS ORDERED: LIDOCAINE 2%/EPI 1:100,000 20 ML VIAL. ONE (07:49)
[2020-05-09] MEDS ORDERED: BACITRACIN 50,000 UNIT in IV NORMAL SALINE 250ML 250 ML IRR ONE (08:15)
[2020-05-09] MEDS ORDERED: IOHEXOL 300 MG/ML 100ML VIAL. ONE (08:42)
[2020-05-09] MEDS ORDERED: MIDAZOLAM HCL/PF 5 MG/5 ML VIAL. ONE (08:42)
[2020-05-09] MEDS ORDERED: fentaNYL PF VIAL 100 MCG/2 ML VIAL ONE (08:42)
--- NOTE | 2020-05-09 08:43 | PDOC ---
MODERATE SEDATION ASSESSMENT RISKS/ALTERNATIVES Risks/Alternatives Risks and alternatives of this type of sedation and procedure discussed with: RISK/ALTERNATIVES: Patient H & P ON CHART H & P H & P on chart and reviewed for co-morbid conditions and appropriate labs. H&P ON CHART: Yes STATUS PREG STATUS ASSESSED: N/A MEDS/ALLERGIES REVIEWED Meds/Allergies Reviewed Medications and Allergies including time and route of recently administered narcotics and sedatives. MEDS/ALLERGIES REVIEWED: Yes ASA RATING ASA RATING: III AIRWAY ASSESSMENT Airway Assessment Airway patency, oral function limitations, presence of caps, crowns, dentures, partials, and ability to extend neck assessed. AIRWAY ASSESSMENT: Yes MALLAMPATI SCORE MALLAMPATI SCORE: II PRE-SEDATION ASSESSMENT PRE-SEDATION ASSESSMENT: Yes JANNET LEYVA MD May 09, 2020 08:43
[2020-05-09] MEDS ORDERED: fentaNYL PF VIAL 100 MCG/2 ML VIAL IV ONE (09:30)
[2020-05-09] MEDS ORDERED: LIDOCAINE 2%/EPI 1:100,000 20 ML VIAL. IJ ONE (09:30)
[2020-05-09] MEDS ORDERED: MIDAZOLAM HCL/PF 5 MG/5 ML VIAL. IV ONE (09:30)
[2020-05-09] MEDS ORDERED: oxyCODONE/APAP 5/325 1 TAB TABLET PO PRN (09:45)
[2020-05-09] MEDS ORDERED: ACETAMINOPHEN 325 MG TABLET. PO PRN (09:45)
--- NOTE | 2020-05-09 10:14 | CARD ---
MR#: [id number] Date of Study: 05/09/2020 Ordering Physician: FLORIDALMA SEXTON, Referring Physician: FLORIDALMA SEXTON, Tech: APPROVED REPORT PROCEDURES Implantation of Medtronic dual chamber permanent pacemaker Explantation of previously placed Medtronic Linq loop recorder Fluoro time: 1.9 min Dose: 20 gycm2 Moderate Sedation: 54 min INDICATIONS Symptomatic sick sinus syndrome, severe bradycardia and syncope PROCEDURE After explaining the risks, benefits, and alternative options, informed consent was obtained from the patient. The patient was brought to the cardiac catheterization lab and the left chest and shoulder were prepp ed and draped in a sterile manner. 10 cc of 2% lidocaine was infiltrated into the skin and subcutaneous tissues around the loop recorder . An incision was made over the previous scar and using blunt dissection, the pocket was opened and the previously placed Medtronic loop recorder was explanted. Subsequently 30 cc of 2% lidocaine was infiltrated in the skin and subcutaneous tissues for local anesthesia. An incision was made over the left infraclavicular fossa and using blunt dissection and cautery of pocket was created. Venous acc ess was obtained in the left subclavian vein and 8 and 6 Argentine sheath inserted. A Medtronic bipolar active fixation right ventricular lead model 321442, serial number [id number] wa s advanced under fluoroscopy guidance and the tip was positioned in the right ventricular apex. Foll owing this, a Medtronic bipolar active fixation right atrial lead model 116015, serial number [id number] was positioned in the right atrial appendage. The leads were secured into place and were attach ed to a Medtronic dual-chamber permanent pacemaker model number [id number], serial number [id number]. T his was placed in the pocket that was subsequently closed in 3 layers. Hemostasis was secured The right ventricular lead showed a sensing amplitude of 4.5 mV, impedance of 969 ohms and a threshol d of 0.75 V. The right atrial lead showed a sensing amplitude of 1.8 mV, impedance of 532 ohms and a threshold of 1.4 V. Patient tolerated the procedure well. There were no immediate complications. CONCLUSION Successful implantation of Medtronic dual-chamber permanent pacemaker for symptomatic sick sinus synd ted and severe bradycardia. The previously placed Medtronic loop recorder was successfully explante d. Signed by : Keaton Pineda, Electronically Approved : 05/09/2020 10:13:29
--- NOTE | 2020-05-09 11:18 | RAD ---
EXAM: PORTABLE CHEST 1V INDICATION: Reason: Post pacemaker / Spl. Instructions: / History: . TECHNIQUE: Single view COMPARISON: 05/07/2020 FINDINGS: Stable cardiomegaly. Interval exchange of the left event monitor for an MRI compatible multichamber pacemaker. The great vessels appear unremarkable. There is no hilar or mediastinal mass. The lungs are clear. There is no pleural effusion or pneumothorax. There are no significant osseous abnormalities. IMPRESSION: Cardiomegaly with no acute cardiopulmonary process. Electronically signed by: Omar Colmenares MD (05/09/2020 11:15 AM) [id number]
--- NOTE | 2020-05-09 11:48 | PDOC ---
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 Removing loop recorder today, pacemaker implantation for SSS Discussed with RN Chart reviewed Vitals/I&O Vitals/I&O: Vital Signs Date Time Temp Pulse Resp B/P (MAP) Pulse Ox O2 Delivery O2 Flow Rate FiO2 05/09/20 09:52 85 15 100 Nasal Cannula 2.0 05/09/20 07:00 97.6 126/63 (84) 97.6 I & O 05/08/20 05/08/20 05/09/20 15:00 23:00 07:00 Intake Total 200 ml 225 ml 200 ml Output Total 1300 ml Balance 200 ml 225 ml -1100 ml Physical Exam General: Alert, Oriented X3, Cooperative, No acute distress Heart: Regular rate, Normal S1, Other (2/6 systolic murmur) Lungs: Clear Abdomen: Normal bowel sounds, Soft Extremities: No clubbing, No cyanosis, No edema, Normal pulses Skin: No rashes, No breakdown, No significant lesion Assessment and Plan Assessmemt and Plan ASSESSMENT Near syncope, recurrent Profound bradycardia H/o syncope s/p ILR (Medtronic) Sinus Sickness Syndrome CKD; Cr stable PLAN Pacemaker implantation today Discharge when cleared by cardiology Telemetry monitoring Monitor heart rate Home meds DVT prophylaxis Full Code Appreciate cardiology input Comment Review of Relevant I have reviewed the following items denise (where applicable) has been applied. Medications: Current Medications Medications (Trade) Dose Ordered Sig/Aguilar Route PRN Reason Start Time Stop Time Status Last Admin Dose Admin Cefazolin Sodium (Ancef) 1 gm 1X ONCE IVP 05/09/20 06:00 05/09/20 06:02 DC 05/09/20 09:33 Bacitracin 91669 unit/Sodium Chloride 250 ml @ 250 mls/hr 1X ONCE IRR 05/09/20 08:15 05/09/20 09:14 DC 05/09/20 09:33 Midazolam HCl (Versed) 5 mg 1X ONCE IV 05/09/20 09:30 05/09/20 09:51 DC 05/09/20 09:34 Fentanyl Citrate (Fentanyl 2ml Vial) 100 mcg 1X ONCE IV 05/09/20 09:30 05/09/20 09:51 DC 05/09/20 09:26 Lidocaine/ Epinephrine (LIDOCAINE 2%-EPI 1:100,000 multi-dose) 37 ml 1X ONCE IJ 05/09/20 09:30 05/09/20 09:51 DC 05/09/20 09:33 Justicifation of Admission Dx: Justifications for Admission: Justification of Admission Dx: Yes KATHY SCHULTZ III DO May 09, 2020 11:48
--- NOTE | 2020-05-09 13:37 | NUR ---
SS following up with discharge planning. SS reviewed pt chart and discussed with pt RN. Pt is from home with spouse and is currently on room air. Pt having permanent pacemaker placed today. Discharge plan is to home when medically ready. SS will continue to follow for discharge planning.
[2020-05-10 03:20] VITALS: BP 146/80
[2020-05-10 07:00] VITALS: BP 138/72
--- NOTE | 2020-05-10 08:27 | PDOC ---
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 Removing loop recorder today, pacemaker implantation for SSS Discussed with RN Chart reviewed Vitals/I&O Vitals/I&O: Vital Signs Date Time Temp Pulse Resp B/P (MAP) Pulse Ox O2 Delivery O2 Flow Rate FiO2 05/10/20 03:20 98.0 70 18 146/80 (102) 97 Room Air 98.0 05/09/20 09:52 2.0 I & O 05/09/20 05/09/20 05/10/20 15:00 23:00 07:00 Intake Total 0 ml 0 ml Balance 0 ml 0 ml Physical Exam General: Alert, Oriented X3, Cooperative, No acute distress Heart: Regular rate, Normal S1, Other (2/6 systolic murmur) Lungs: Clear Abdomen: Normal bowel sounds, Soft Extremities: No clubbing, No cyanosis, No edema, Normal pulses Skin: No rashes, No breakdown, No significant lesion, Other (Pacemaker dressing is CDI ) Assessment and Plan Assessmemt and Plan ASSESSMENT Near syncope, recurrent Profound bradycardia Postop permanent pace maker ILR (Medtronic) Sinus Sickness Syndrome CKD; Cr stable PLAN Probable discharge today pending cardiology Telemetry monitoring Monitor heart rate Home meds DVT prophylaxis Full Code Appreciate cardiology input Comment Review of Relevant I have reviewed the following items denise (where applicable) has been applied. Medications: Current Medications Medications (Trade) Dose Ordered Sig/Aguilar Route PRN Reason Start Time Stop Time Status Last Admin Dose Admin Midazolam HCl (Versed) 5 mg 1X ONCE IV 05/09/20 09:30 05/09/20 09:51 DC 05/09/20 09:34 Fentanyl Citrate (Fentanyl 2ml Vial) 100 mcg 1X ONCE IV 05/09/20 09:30 05/09/20 09:51 DC 05/09/20 09:26 Lidocaine/ Epinephrine (LIDOCAINE 2%-EPI 1:100,000 multi-dose) 37 ml 1X ONCE IJ 05/09/20 09:30 05/09/20 09:51 DC 05/09/20 09:33 Cefazolin Sodium (Ancef) 1 gm 1X ONCE IVP 05/09/20 15:00 05/09/20 15:01 DC 05/09/20 17:56 Justicifation of Admission Dx: Justifications for Admission: Justification of Admission Dx: Yes KATHY SCHULTZ III DO May 10, 2020 08:27
--- NOTE | 2020-05-10 08:41 | SNU/HH DC ---
DISCHARGE WITH HOME HEALTH DISCHARGE INFORMATION: Condition on Discharge: Stable CODE STATUS: Code Status: Full HOME HEALTH: Face to Face: I certify this patient is under my care and that I, or a nurse practitioner or physician's real estate assistant working with me, had a face to face encounter that meets the physician face to face encounter requirements with this patient on []. Medical Complications: Other (Recent permanent pacemaker) RN For Eval/Treatment: Yes Physical Therapy For: Evalulation/Treatment Speech Language Pathology For: Evaluation/Treatment Home Health Aide For: Self-care SANITARIAN AIDE For: Community Resources Pt Meets Homebound Status: Poor coordination w/ amb. POST DISCHARGE ORDERS: DIET AFTER DISCHARGE: Cardiac CERTIFICATION STATEMENT: Certification Statement: Certification Statement: Based on the above finding, I certify that this patient is confined to the home and needs intermittent retirement care, physical t herapy and/or speech therapy, or continues to need occupational therapy.~ This patient is under my care, and I have initiated the establishment of the plan of care.~ This patient will be followed by myself or a community physician who will periodically review the plan of care. Home Meds Reported Medications Mv-Mn/FA/Vit K/Lycop/Lut/Zeaxa (Ocuvite Eye + Multi Tablet) 1 Each Tablet, 1 EACH PO DAILY for supplement, TAB 05/08/20 Lactobacillus Combination No.4 (PROBIOTIC) 1 Each Capsule, 1 EACH PO DAILY for supplement, CAP 05/08/20 Cephalexin (CEPHALEXIN) 250 Mg Capsule, 1 CAP PO QHS for UTI, #28 CAP 05/08/20 KATHY SCHULTZ III DO May 10, 2020 08:41
--- NOTE | 2020-05-10 09:42 | RAD ---
PA and lateral chest. HISTORY: 1. Day post pacemaker PA and lateral views were taken of the chest. There is a left pacemaker with atrial and ventricular pacing leads. A pneumothorax is not identified. There is no pleural effusion. Heart is enlarged. There are no new infiltrates. The aorta is tortuous. IMPRESSION: 1. Pacemaker on the left. 2. No pneumothorax. 3. No new infiltrates. Electronically signed by: Bryson Chaudhari MD (05/10/2020 9:39 AM) [id number]
[2020-05-10 11:00] VITALS: BP 141/75
--- NOTE | 2020-05-10 11:28 | PDOC ---
FLORIDALMA SEXTON APRN 05/10/20 1128: CARDIO Progress Notes Date and Time Date of Service 05/10/20 Time of Evaluation 1120 Subjective Subjective: No Chest Pain, No shortness of breath, No Palpitations Vitals Vitals Vital Signs Date Time Temp Pulse Resp B/P (MAP) Pulse Ox O2 Delivery O2 Flow Rate FiO2 05/10/20 08:00 Room Air 05/10/20 07:00 97.6 75 16 138/72 (94) 96 97.6 05/09/20 09:52 2.0 Weight Weight [ ] Input and Output Intake and Output Intake and Output 05/10/20 07:00 Intake Total 0 ml Balance 0 ml Intake Oral 0 ml # Voids 1 Physical Exam HEENT: Neck Supple W Full Motion Chest: Symmetric, Other (left chest PPM site well-approximated. Steri-strips intact. No hematoma present. Bilateral neurovascular status intact.) LUNGS: Clear to Auscultation Heart: S1S2, RRR Abdomen: Soft N/T Neurology: alert, oriented, follow commands Assessment Assessment 1. Near syncope, recurrent; in the setting of profound bradycardia. CT head without acute findings. Echo 11/18 with LVEF 50%, mild-moderate AR. 2. SSS/severe bradycardia, symptomatic; s/p successful implantation of Medtronic dual-chamber PPM. Previously placed Medtronic loop recorder was successfully explanted. Post op device check with normal function. CXR WNL 4. CKD; Cr stable per review Recommendations Okay to discharge Outpatient [facility] as scheduled Follow up in our office with RN for wound check May 23 at 10:00am. Supportive care Justicifation of Admission Dx: Justifications for Admission: Justification of Admission Dx: Yes JANNET LEYVA MD 05/10/202048: CARDIO Progress Notes Assessment Assessment Patient seen and examined. Agree with [employer]'s assessment and plan. s/p PPM implantation for SSS Device check showed normal LVF and CXR did not show pneumothorax OK for DC from cardiac standpoint FLORIDALMA SEXTON APRN May 10, 2020 11:28 JANNET LEYVA MD May 10, 2020 20:49
--- NOTE | 2020-05-10 13:28 | NUR ---
Discharge Note: LORA EUGENE CONSTANCE Discharge instructions and discharge home medications reviewed with Patient and a copy given. All questions have been answered and understanding verbalized. The following instructions and handouts were given: pacemaker placement Discontinued lines and drains: Peripheral IV intact. Patient discharged to Home or Self Care with Family Member via Ambulated
--- NOTE | 2020-05-18 12:24 | DS ---
DATE OF DISCHARGE: 05/10/2020 ADMISSION DIAGNOSIS: Near syncope. DISCHARGE DIAGNOSES: Resolving near syncope, status post permanent pacemaker placement. HOSPITAL COURSE: The patient is a pleasant 80-year-old female who presented with near syncopal episode. She was admitted. We discovered she has sick sinus syndrome. She was taken for a pacemaker. Post-procedure, she did well. We discharged to home. DISPOSITION: Home. ACTIVITY: As tolerated. DIET: Low sodium. MEDICATIONS: Please see the MRAD. TOTAL TIME: 34 minutes. KATHY SCHULTZ DO DR: KHALIF/eduardo JOB#: [id number] / [id number]
== END 2020-05-10 13:39 | disposition home or self-care (01) | DRG 243 ==
LOC: ER 18:00 → 2 NORTH 21:35
PROVIDERS: ADMIT Family Medicine; ATTEND Family Medicine
PROC: 0JH606Z Insertion of Pacemaker, Dual Chamber into Chest Subcutaneous Tissue and Fascia, Open Approach (ICD-10-PCS; principal; 2020-05-09)
PROC: 02H63JZ Insertion of Pacemaker Lead into Right Atrium, Percutaneous Approach (ICD-10-PCS; 2020-05-09)
PROC: 02HK3JZ Insertion of Pacemaker Lead into Right Ventricle, Percutaneous Approach (ICD-10-PCS; 2020-05-09)
DX: I49.5 Sick sinus syndrome (principal); I50.32 Chronic diastolic (congestive) heart failure; N18.4 Chronic kidney disease, stage 4 (severe); Z82.3 Family history of stroke; Z82.49 Family history of ischemic heart disease and other diseases of the circulatory system; Z90.49 Acquired absence of other specified parts of digestive tract; Z90.710 Acquired absence of both cervix and uterus; Z93.3 Colostomy status
CPT/HCPCS: 33217; 33286; 36415; 70450; 71045; 71046; 80053; 82553; 83880; 84484; 85025; 85610; 85730; 99152; 99153; 99285; C1785; C1898; J0690; J2250; J3010; J3490; J7050; G0378; J7030

== ENCOUNTER 2020-12-11 17:13 | Inpatient (IN) | payer MEDICARE, BC ==
[~2020-12-11] VITALS: Ht 167.6 cm; Wt 73.5 kg
[~2020-12-11 17:13] MED LIST: CEPH250C PO; LACT1CAP25 PO; MV-M1TAB36 PO
[2020-12-11 18:47] LABS: BASO % 1 % (0-3); EOS # 0.1 x10^3/uL (0.0-0.7); EOS % 2 % (0-3); HEMATOCRIT 33.5 % (36.0-47.0); HEMOGLOBIN 11.2 g/dL (12.0-15.5); LYMPH # 1.3 x10^3/uL (1.0-4.8); LYMPH % 22 % (24-48); MEAN CORPUSCULAR HEMOGLOBIN 29 pg (25-35); MEAN CORPUSCULAR HGB CONC 33 g/dL (31-37); MEAN CORPUSCULAR VOLUME 87 fL (79-100); MONO # 0.5 x10^3/uL (0.0-1.1); MONO % 9 % (0-9); NEUT # 3.8 x10^3/uL (1.8-7.7); NEUT % 66 % (31-73); PLATELET COUNT 156 x10^3/uL (140-400); RED BLOOD COUNT 3.85 x10^6/uL (3.50-5.40); RED CELL DISTRIBUTION WIDTH 13.6 % (11.5-14.5); WHITE BLOOD COUNT 5.8 x10^3/uL (4.0-11.0)
[2020-12-11 19:08] LABS: CALCIUM 8.2 mg/dL (8.5-10.1); GFR 23.9; POTASSIUM 4.3 mmol/L (3.5-5.1)
--- NOTE | 2020-12-11 19:14 | PHYS DOC ---
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 She states a week or 2 ago she did have some right lower flank pain that was a stabbing feeling. She states the pain is since gone away. She rates it a 0 out of 10 at this time. Patient denies abdominal pain, nausea, vomiting, diarrhea, constipation, headache, dizziness, chest pain, sh ortness of air, fever, urinary symptoms, back pain, injury, numbness or tingling, fall. Patient has a history of abdominal hernia, UTI, pacemaker, asthma, renal insufficiency, renal disease, appendectomy. Review of Systems: Review of Systems: Constitutional: Denies fever or chills. [] Eyes: Denies change in visual acuity. [] HENT: Denies nasal congestion or sore throat. [] Respiratory: Denies cough or shortness of breath. [] Cardiovascular: Denies chest pain or edema. [] GI: Denies abdominal pain, nausea, vomiting, bloody stools or diarrhea. [] : Denies dysuria. [] Musculoskeletal: Right sided flank back pain or denies joint pain. [] Integument: Denies rash. [] Neurologic: Denies headache, focal weakness or sensory changes. [] Endocrine: Denies polyuria or polydipsia. [] Lymphatic: Denies swollen glands. [] Psychiatric: Denies depression or anxiety. [] Heart Score: C/O Chest Pain: No Risk Factors: Risk Factors: DM, Current or recent (<one month) smoker, HTN, HLP, family history of CAD, obesity. Risk Scores: Score 0 - 3: 2.5% MACE over next 6 weeks - Discharge Home Score 4 - 6: 20.3% MACE over next 6 weeks - Admit for Clinical Observation Score 7 - 10: 72.7% MACE over next 6 weeks - Early Invasive Strategies Allergies: Allergies: Allergies Coded Allergies Type Severity Reaction Last Updated Verified No Known Drug Allergies 12/11/20 No Physical Exam: PE: Constitutional: Well developed, well nourished, no acute distress, non-toxic appearance. [] HENT: Normocephalic, atraumatic, bilateral external ears normal, oropharynx moist, no oral exudates, nose normal. [] Eyes: PERRLA, EOMI, conjunctiva normal, no discharge. [] Neck: Normal range of motion, no tenderness, supple, no stridor. [] Cardiovascular:Heart rate regular rhythm, no murmur [] Lungs & Thorax: Bilateral breath sounds clear to auscultation [] Abdomen: Bowel sounds normal, soft, no tenderness, no masses, no pulsatile masses. [] Skin: Warm, dry, no erythema, no rash. [] Back: No tenderness, no CVA tenderness. [] Extremities: No tenderness, no cyanosis, no clubbing, ROM intact, no edema. [] Neurologic: Alert and oriented X 3, normal motor function, normal sensory function, no focal deficits noted. [] Psychologic: Affect normal, judgement normal, mood normal. Normal physical exam [] Current Patient Data: Labs: Laboratory Tests Test 12/11/20 18:23 White Blood Count 5.8 x10^3/uL (4.0-11.0) Red Blood Count 3.85 x10^6/uL (3.50-5.40) Hemoglobin 11.2 g/dL (12.0-15.5) L Hematocrit 33.5 % (36.0-47.0) L Mean Corpuscular Volume 87 fL (79-100) Mean Corpuscular Hemoglobin 29 pg (25-35) Mean Corpuscular Hemoglobin Concent 33 g/dL (31-37) Red Cell Distribution Width 13.6 % (11.5-14.5) Platelet Count 156 x10^3/uL (140-400) Neutrophils (%) (Auto) 66 % (31-73) Lymphocytes (%) (Auto) 22 % (24-48) L Monocytes (%) (Auto) 9 % (0-9) Eosinophils (%) (Auto) 2 % (0-3) Basophils (%) (Auto) 1 % (0-3) Neutrophils # (Auto) 3.8 x10^3/uL (1.8-7.7) Lymphocytes # (Auto) 1.3 x10^3/uL (1.0-4.8) Monocytes # (Auto) 0.5 x10^3/uL (0.0-1.1) Eosinophils # (Auto) 0.1 x10^3/uL (0.0-0.7) Basophils # (Auto) 0.0 x10^3/uL (0.0-0.2) Laboratory Tests 12/11/20 18:23 Vital Signs: Vital Signs Date Time Temp Pulse Resp B/P (MAP) Pulse Ox O2 Delivery O2 Flow Rate FiO2 12/11/20 18:19 97.6 77 12 171/88 (115) 98 Room Air 97.6 EKG: EK read by Dr. Steinberg as sinus rhythm with no STEMI [address] Steinberg as sinus rhythm and no STEMI [] Radiology/Procedures: Radiology/Procedures: [] Impression: [facility] [address] [place], [place] [id number] IMAGING REPORT Signed PATIENT: LORA EUGENE KACCOUNT: [id number] : 1940 LOCATION: ER AGE: 80 SEX: F EXAM STATUS: REG ER ORD. PHYSICIAN: RONAL HAMM APRN REASON: right flank pain PROCEDURE: CT ABDOMEN PELVIS WO CONTRAST Exam: CT of abdomen and pelvis without contrast INDICATION: Right flank pain TECHNIQUE: Sequential axial images through the abdomen and pelvis obtained without IV contrast. Sagittal and coronal reformatted images were reconstructed from the axial data and reviewed. Comparisons: None FINDINGS: Heart is mildly enlarged. No pericardial effusion. Visualized lung bases are clear. No pleural effusion. Evaluation of solid organs limited secondary to noncontrast technique. Liver, spleen, pancreas and adrenals are unremarkable. Gallstones and within the gallbladder. No pericholecystic inflammatory changes. No perinephric inflammation or hydronephrosis. No renal or ureteral calculi are identified. Bladder is decompressed not well evaluated. Uterus is absent. No abnormal adnexal mass. Postoperative changes of colectomy with a left lower quadrant colostomy. Small bowel is unremarkable. No free intra-abdominal air or fluid. No obstruction. Abdominal aorta has a normal course and caliber. No enlarged intra-abdominal lymph nodes are identified. No suspicious osseous lesions or acute fractures. IMPRESSION: 1. Left lower quadrant colostomy. 2. Cholelithiasis without secondary evidence for acute cholecystitis on CT. 3. Otherwise, no acute process identified within the abdomen or pelvis. Exposure: One or more of the following in the visualized dose reduction techniques were utilized for this examination: 1. Automated exposure control 2. Adjustment of the MA and/or KV according to patient size 3. Use of iterative of reconstructive technique Electronically signed by: Iraida Brown MD (12/11/2020 7:33 PM) [facility] DICTATED and SIGNED BY: IRAIDA BROWN MD DATE: 12/11/[id number] 0 [facility] [address] [place] [address] IMAGING REPORT Signed PATIENT: LORA EUGENE KACCOUNT: [id number] : 1940 LOCATION: ER AGE: 80 SEX: F EXAM STATUS: REG ER ORD. PHYSICIAN: RONAL HAMM APRN REASON: RUQ PAIN, GALL BLADDER PROCEDURE: ABDOMEN LTD INDICATION : Reason: RUQ PAIN, GALL BLADDER / Spl. Instructions: / History: COMPARISON: December 11, 2020 TECHNIQUE: Multiple ultrasound images obtained through the abdomen in grayscale and color. FINDINGS: Liver: Echogenic Gallbladder: Gallstones are visualized. IVC: Partially distended at level of liver. Common Bile Duct: Not dilated. Pancreas: Largely obscured by bowel gas. Right Kidney: No hydronephrosis. IMPRESSION: * Gallstones are visualized without common bile duct dilation or significant gallbladder wall thickening. * Liver is mildly echogenic. Nonspecific but can be seen with fatty infiltration. Electronically signed by: Myra Rdz MD (12/11/2020 8:48 PM) [id number] DICTATED and SIGNED BY: MYRA RDZ MD DATE: 12/11/[id number] 0 Course & Med Decision Making: Course & Med Decision Making Pertinent Labs and Imaging studies reviewed. (See chart for details) See HPI. Alert and oriented x4. Ambulatory with a steady gait. Abdomen is soft and nontender. No CVA tenderness. Pain cannot be reproduced with palpation or movement of the patient. Skin pink warm and dry. Vital signs are within normal limits. Patient's ultrasound and CT showed cholelithiasis. There is no cholecystitis. Patient troponin is also slightly elevated at 0.028. I will redo the troponin and the EKG. Patient agrees to this. Have spoken to Dr. Steinberg about this patient's findings and care plan. I have offered the patient pain medication as she states that at times the pain is coming back off and on but is not nearly as bad. Patient refuses any pain medication states she does not take any of it due to her kidney function. Second troponin shows troponin has gone up to 0.036. Second EKG had no changes and showed no STEMI. Dr. Steinberg in to speak with patient about findings and possible admission. Patient is admitted to the hospitalist. 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 [] [employer] Disclaimer: Dragsmitha Disclaimer: This electronic medical record was generated, in whole or in part, using a voice recognition dictation system. Departure Departure Impression: Primary Impression: Cholelithiases Qualified Codes: K80.20 - Calculus of gallbladder without cholecystitis without obstruction Additional Impression: Elevated troponin Disposition: ADMITTED INPT THIS HOSP Admitting Physician: OLEGARIO Condition: STABLE Referrals: ANDREAS VARNER DO (PCP) RONAL HAMM APRN Dec 11, 2020 19:14
[2020-12-11 19:15] LABS: ALBUMIN 3.9 g/dL (3.4-5.0); ALBUMIN/GLOBULIN RATIO 1.3 (1.0-1.7); TOTAL BILIRUBIN 0.5 mg/dL (0.2-1.0); TOTAL PROTEIN 6.9 g/dL (6.4-8.2)
--- NOTE | 2020-12-11 19:35 | RAD ---
Exam: CT of abdomen and pelvis without contrast INDICATION: Right flank pain TECHNIQUE: Sequential axial images through the abdomen and pelvis obtained without IV contrast. Sagit carmelina and coronal reformatted images were reconstructed from the axial data and reviewed. Comparisons: None FINDINGS: Heart is mildly enlarged. No pericardial effusion. Visualized lung bases are clear. No pleural effusi on. Evaluation of solid organs limited secondary to noncontrast technique. Liver, spleen, pancreas and adrenals are unremarkable. Gallstones and within the gallbladder. No jennifer cholecystic inflammatory changes. No perinephric inflammation or hydronephrosis. No renal or ureteral calculi are identified. Bladder is decompressed not well evaluated. Uterus is absent. No abnormal adnexal mass. Postoperative changes of colectomy with a left lower quadrant colostomy. Small bowel is unremarkable. No free intra-abdominal air or fluid. No obstruction. Abdominal aorta has a normal course and caliber. No enlarged intra-abdominal lymph nodes are identified. No suspicious osseous lesions or acute fractures. IMPRESSION: 1. Left lower quadrant colostomy. 2. Cholelithiasis without secondary evidence for acute cholecystitis on CT. 3. Otherwise, no acute process identified within the abdomen or pelvis. Exposure: One or more of the following in the visualized dose reduction techniques were utilized for this examination: 1. Automated exposure control 2. Adjustment of the MA and/or KV according to patient size 3. Use of iterative of reconstructive technique Electronically signed by: Iraida Church MD (12/11/2020 7:33 PM) [facility]
[2020-12-11 19:39] LABS: BILIRUBIN,URINE NEGATIVE (NEG); CLARITY,URINE CLOUDY; COLOR,URINE YELLOW; NITRITE,URINE NEGATIVE (NEG); PROTEIN,URINE 30 mg/dL (NEG-TRACE); UROBILINOGEN,URINE 0.2 mg/dL (0.2 mg/dL)
[2020-12-11 19:51] LABS: BACTERIA,URINE FEW /HPF (0-FEW); WBC,URINE OCC /HPF (0-4)
--- NOTE | 2020-12-11 20:04 | EKG ---
[facility] [address] [place] [address] Test Date: 2020-12-11 Test Time: 19:59:24 Pat Name: LORA EUGENE Department: Room: Gender: F Spreader Box Operator: : 1940 Requested By: RONAL HAMM Order Number: [id number] Reading MD: Measurements Intervals [place] Rate: 72 P: 59 [place]: 198 QRS: -45 QRSD: 100 T: 32 QT: 390 QTc: 429 Interpretive Statements SINUS RHYTHM LEFT ATRIAL ABNORMALITY ABNORMAL LEFT AXIS DEVIATION R-S TRANSITION ZONE IN V LEADS DISPLACED TO THE LEFT LEFT ANTERIOR FASCICULAR BLOCK ABNORMAL ECG RI6.01 No previous ECG available for comparison
--- NOTE | 2020-12-11 20:50 | RAD ---
INDICATION : Reason: RUQ PAIN, GALL BLADDER / Spl. Instructions: / History: COMPARISON: December 11, 2020 TECHNIQUE: Multiple ultrasound images obtained through the abdomen in grayscale and color. FINDINGS: Liver: Echogenic Gallbladder: Gallstones are visualized. IVC: Partially distended at level of liver. Common Bile Duct: Not dilated. Pancreas: Largely obscured by bowel gas. Right Kidney: No hydronephrosis. IMPRESSION: * Gallstones are visualized without common bile duct dilation or significant gallbladder wall thick ening. * Liver is mildly echogenic. Nonspecific but can be seen with fatty infiltration. Electronically signed by: Huy Neff MD (12/11/2020 8:48 PM) [id number]
[2020-12-11] MEDS ORDERED: ACETAMINOPHEN 325 MG TABLET. PO PRN (22:00)
[2020-12-11 23:40] VITALS: BP 164/79
[2020-12-12] MEDS ORDERED: estrogen cream VAG (01:16)
--- NOTE | 2020-12-12 01:17 | NUR ---
Pt arrived to the unit per wheelchair, Pt ambulated pt oriented to surroundings and call light, tele monitor applied vs obtained and stable. Pt denied pain assessment completed poc explained call light in reach will resume care and continue to monitor pt.
[2020-12-12 03:18] VITALS: BP 144/76
[2020-12-12 07:00] VITALS: BP 154/74
[2020-12-12 09:22] LABS: CALCIUM 8.4 mg/dL (8.5-10.1); CREATININE 1.7 mg/dL (0.6-1.0); GFR 28.8; POTASSIUM 3.9 mmol/L (3.5-5.1)
--- NOTE | 2020-12-12 10:02 | EKG ---
[facility] [address] [place] [address] Test Date: 2020-12-11 Test Time: 21:15:48 Pat Name: LORA EUGENE Department: Room: 206 1 Gender: F Gas Tester: : 1940 Requested By: NAHUM WILSON Order Number: [id number] Reading MD: Coleman tSarks MD Measurements Intervals [place] Rate: 71 P: 57 [place]: 196 QRS: -49 QRSD: 102 T: 31 QT: 382 QTc: 415 Interpretive Statements SINUS RHYTHM ABNORMAL LEFT AXIS DEVIATION R-S TRANSITION ZONE IN V LEADS DISPLACED TO THE LEFT LEFT ANTERIOR FASCICULAR BLOCK ABNORMAL ECG Electronically Signed On 12-12-2020 11:23:19 CDT by Coleman Starks MD
--- NOTE | 2020-12-12 10:36 | PDOC2 ---
CONSULT Date of Consult Date of Consult DATE: 12/12/20 TIME: 10:31 Reason for Consult Reason for Consult: cholelithiasis Referring Physician Referring Physician: Dr Borges Identification/Chief Complaint Chief Complaint flank pain Source Source: Chart review, Patient History of Present Illness Reason for Visit: Acute onset right flank pain, stabbing.. No similar pain in past, no n/v, no constipation or diarrhea. Currently pain resolved Past Medical History Cardiovascular: Syncope GI: Other (ulcerative colitis) Heme/Onc: Anemia NOS, Other Renal/: Chronic renal insuff Past Surgical History Past Surgical History: Appendectomy, Hernia Repair, Hysterectomy, Colon Resection, Other Family History Family History: Stroke Social History ALCOHOL: none Drugs: None Lives: with Family Current Problem List Problem List Problems Medical Problems: (1) Cholelithiases Status: Acute (2) Elevated troponin Status: Acute Current Medications Current Medications Current Medications Acetaminophen (Tylenol) 650 mg PRN Q4HRS PRN PO FEVER > 100.3'F; Start 12/11/20 at 22:00; Stop 12/12/20 at 21:59 Active Scripts Active Reported [estrogen cream] Dis.syr VAG QMWF Ocuvite Eye + Multi Tablet (Mv-Mn/FA/Vit K/Lycop/Lut/Zeaxa) 1 Each Tablet 1 Each PO DAILY Allergies Allergies: Coded Allergies: No Known Drug Allergies (Unverified , 12/11/20) ROS General: No: Chills, Other (fevers ) PSYCHOLOGICAL ROS: No: Anxiety, Depression Eyes: No Blurry vision, No Double vision HEENT: No: Heacaches, Sore Throat Hematological and Lymphatic: No: Bleeding Problems, Blood Clots Respiratory: No: Cough Cardiovascular: No Chest Pain, No Palpitations Gastrointestinal: No Nausea, No Vomiting Genitourinary: No Dysuria, No Hematuria Musculoskeletal: No Joint Pain, No Muscle Pain Neurological: No Impaired Coord/balance, No Numbness/Tingling Skin: No Pruritus, No Rash Physical Exam General: Alert, Oriented X3, Cooperative HEENT: Atraumatic Lungs: Clear to auscultation Heart: Regular rate, Normal S1, Normal S2 Abdomen: Soft, Other (ND, NTTP, ostomy with stool, surgical scars ) Extremities: No clubbing, No cyanosis Skin: No rashes, No breakdown Neuro: Normal gait, Normal speech Psych/Mental Status: Mental status NL, Mood NL MUSCULOSKELETAL: No deformity, No swelling Vitals VITALS Vital Signs Date Time Temp Pulse Resp B/P (MAP) Pulse Ox O2 Delivery O2 Flow Rate FiO2 12/12/20 07:34 Room Air 12/12/20 07:00 98.4 77 16 154/74 (100) 95 98.4 Labs Labs Laboratory Tests Test 12/11/20 18:23 12/11/20 19:05 12/11/20 21:16 12/12/20 08:55 White Blood Count 5.8 x10^3/uL (4.0-11.0) Red Blood Count 3.85 x10^6/uL (3.50-5.40) Hemoglobin 11.2 g/dL (12.0-15.5) Hematocrit 33.5 % (36.0-47.0) Mean Corpuscular Volume 87 fL (79-100) Mean Corpuscular Hemoglobin 29 pg (25-35) Mean Corpuscular Hemoglobin Concent 33 g/dL (31-37) Red Cell Distribution Width 13.6 % (11.5-14.5) Platelet Count 156 x10^3/uL (140-400) Neutrophils (%) (Auto) 66 % (31-73) Lymphocytes (%) (Auto) 22 % (24-48) Monocytes (%) (Auto) 9 % (0-9) Eosinophils (%) (Auto) 2 % (0-3) Basophils (%) (Auto) 1 % (0-3) Neutrophils # (Auto) 3.8 x10^3/uL (1.8-7.7) Lymphocytes # (Auto) 1.3 x10^3/uL (1.0-4.8) Monocytes # (Auto) 0.5 x10^3/uL (0.0-1.1) Eosinophils # (Auto) 0.1 x10^3/uL (0.0-0.7) Basophils # (Auto) 0.0 x10^3/uL (0.0-0.2) Sodium Level 133 mmol/L (136-145) 137 mmol/L (136-145) Potassium Level 4.3 mmol/L (3.5-5.1) 3.9 mmol/L (3.5-5.1) Chloride Level 98 mmol/L (98-107) 103 mmol/L (98-107) Carbon Dioxide Level 27 mmol/L (21-32) 26 mmol/L (21-32) Anion Gap 8 (6-14) 8 (6-14) Blood Urea Nitrogen 31 mg/dL (7-20) 24 mg/dL (7-20) Creatinine 2.0 mg/dL (0.6-1.0) 1.7 mg/dL (0.6-1.0) Estimated GFR (Cockcroft-Gault) 23.9 28.8 BUN/Creatinine Ratio 16 (6-20) Glucose Level 104 mg/dL (70-99) 92 mg/dL (70-99) Calcium Level 8.2 mg/dL (8.5-10.1) 8.4 mg/dL (8.5-10.1) Total Bilirubin 0.5 mg/dL (0.2-1.0) Aspartate Amino Transf (AST/SGOT) 32 U/L (15-37) Alanine Aminotransferase (ALT/SGPT) 25 U/L (14-59) Alkaline Phosphatase 63 U/L (46-116) Troponin I Quantitative 0.028 ng/mL (0.000-0.055) 0.036 ng/mL (0.000-0.055) 0.058 ng/mL (0.000-0.055) Total Protein 6.9 g/dL (6.4-8.2) Albumin 3.9 g/dL (3.4-5.0) Albumin/Globulin Ratio 1.3 (1.0-1.7) Lipase 314 U/L (73-393) Urine Collection Type Unknown Urine Color Yellow Urine Clarity Cloudy Urine pH 5.0 (<5.0-8.0) Urine Specific [place] 1.010 (1.000-1.030) Urine Protein 30 mg/dL (NEG-TRACE) Urine Glucose (UA) Negative mg/dL (NEG) Urine Ketones (Stick) Negative mg/dL (NEG) Urine Blood Small (NEG) Urine Nitrite Negative (NEG) Urine Bilirubin Negative (NEG) Urine Urobilinogen Dipstick 0.2 mg/dL (0.2 mg/dL) Urine Leukocyte Esterase Negative (NEG) Urine RBC 1-2 /HPF (0-2) Urine WBC Occ /HPF (0-4) Urine Squamous Epithelial Cells Many /LPF Urine Bacteria Few /HPF (0-FEW) Urine Mucus Slight /LPF Laboratory Tests Test 12/11/20 18:23 12/11/20 19:05 12/11/20 21:16 12/12/20 08:55 White Blood Count 5.8 x10^3/uL (4.0-11.0) Red Blood Count 3.85 x10^6/uL (3.50-5.40) Hemoglobin 11.2 g/dL (12.0-15.5) Hematocrit 33.5 % (36.0-47.0) Mean Corpuscular Volume 87 fL (79-100) Mean Corpuscular Hemoglobin 29 pg (25-35) Mean Corpuscular Hemoglobin Concent 33 g/dL (31-37) Red Cell Distribution Width 13.6 % (11.5-14.5) Platelet Count 156 x10^3/uL (140-400) Neutrophils (%) (Auto) 66 % (31-73) Lymphocytes (%) (Auto) 22 % (24-48) Monocytes (%) (Auto) 9 % (0-9) Eosinophils (%) (Auto) 2 % (0-3) Basophils (%) (Auto) 1 % (0-3) Neutrophils # (Auto) 3.8 x10^3/uL (1.8-7.7) Lymphocytes # (Auto) 1.3 x10^3/uL (1.0-4.8) Monocytes # (Auto) 0.5 x10^3/uL (0.0-1.1) Eosinophils # (Auto) 0.1 x10^3/uL (0.0-0.7) Basophils # (Auto) 0.0 x10^3/uL (0.0-0.2) Sodium Level 133 mmol/L (136-145) 137 mmol/L (136-145) Potassium Level 4.3 mmol/L (3.5-5.1) 3.9 mmol/L (3.5-5.1) Chloride Level 98 mmol/L (98-107) 103 mmol/L (98-107) Carbon Dioxide Level 27 mmol/L (21-32) 26 mmol/L (21-32) Anion Gap 8 (6-14) 8 (6-14) Blood Urea Nitrogen 31 mg/dL (7-20) 24 mg/dL (7-20) Creatinine 2.0 mg/dL (0.6-1.0) 1.7 mg/dL (0.6-1.0) Estimated GFR (Cockcroft-Gault) 23.9 28.8 BUN/Creatinine Ratio 16 (6-20) Glucose Level 104 mg/dL (70-99) 92 mg/dL (70-99) Calcium Level 8.2 mg/dL (8.5-10.1) 8.4 mg/dL (8.5-10.1) Total Bilirubin 0.5 mg/dL (0.2-1.0) Aspartate Amino Transf (AST/SGOT) 32 U/L (15-37) Alanine Aminotransferase (ALT/SGPT) 25 U/L (14-59) Alkaline Phosphatase 63 U/L (46-116) Troponin I Quantitative 0.028 ng/mL (0.000-0.055) 0.036 ng/mL (0.000-0.055) 0.058 ng/mL (0.000-0.055) Total Protein 6.9 g/dL (6.4-8.2) Albumin 3.9 g/dL (3.4-5.0) Albumin/Globulin Ratio 1.3 (1.0-1.7) Lipase 314 U/L (73-393) Urine Collection Type Unknown Urine Color Yellow Urine Clarity Cloudy Urine pH 5.0 (<5.0-8.0) Urine Specific [place] 1.010 (1.000-1.030) Urine Protein 30 mg/dL (NEG-TRACE) Urine Glucose (UA) Negative mg/dL (NEG) Urine Ketones (Stick) Negative mg/dL (NEG) Urine Blood Small (NEG) Urine Nitrite Negative (NEG) Urine Bilirubin Negative (NEG) Urine Urobilinogen Dipstick 0.2 mg/dL (0.2 mg/dL) Urine Leukocyte Esterase Negative (NEG) Urine RBC 1-2 /HPF (0-2) Urine WBC Occ /HPF (0-4) Urine Squamous Epithelial Cells Many /LPF Urine Bacteria Few /HPF (0-FEW) Urine Mucus Slight /LPF Assessment/Plan Assessment/Plan flank pain, chronic kidney disease elevated cardiac enzymes imaging showing cholelithaisis, no signs of cholecystitis--would recommend observation of recurrence of pain while admitted and undergoing cardiac elevation--could consider surgery if returns or more indicative findings of GB EDITH JOHN FIRST OFFICER AND FLIGHT INSTRUCTOR Dec 12, 2020 10:36
--- NOTE | 2020-12-12 10:42 | EKG ---
[facility] [address] [place] [address] Test Date: 2020-12-12 Test Time: 10:21:55 Pat Name: LORA EUGENE Department: Room: 206 1 Gender: F Radiosonde Operator: KALYN : 1940 Requested By: RONAL HAMM Order Number: [id number] Reading MD: Coleman Starks MD Measurements Intervals [place] Rate: 65 P: 63 [place]: 164 QRS: -56 QRSD: 100 T: 25 QT: 382 QTc: 398 Interpretive Statements SR LAD POOR R WAVE PROGRESSION Electronically Signed On 12-12-2020 14:15:31 CDT by Coleman Starks MD
[2020-12-12 11:00] VITALS: BP 134/67
--- NOTE | 2020-12-12 11:28 | HP ---
ADMIT DATE: 12/12/2020 CHIEF COMPLAINT: Flank pain. HISTORY OF PRESENT ILLNESS: The patient is a pleasant 80-year-old female who was sent over with right-sided flank pain that has been occurring for several days. She was sowing when it began. It was stabbing in nature, rated at 7/10, worse with food, better with no food. She increased her home meds, but that did not work. While in the ER, we noted that her troponin is little high at 0.028, but she also has chronic renal insufficiency with a creatinine of 2. She also has gallstones on her imaging and we have decided to go to admit the patient with consultation to Cardiology and General Surgery. 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 ALLERGIES: None. FAMILY HISTORY: Diabetes. SOCIAL HISTORY: She does not drink, smoke or take drugs. MEDICATIONS: Reviewed, please refer to the MRAD. REVIEW OF SYSTEMS: GENERAL: No history of weight change, weakness or fevers. SKIN: No bruising, hair changes or rashes. EYES: No blurred, double or loss of vision. NOSE AND THROAT: No history of nosebleeds, hoarseness or sore throat. HEART: No history of palpitations, chest pain or shortness of breath on exertion. LUNGS: Denies cough, hemoptysis, wheezing or shortness of breath. GASTROINTESTINAL: Denies changes in appetite, nausea, vomiting, diarrhea or constipation. GENITOURINARY: No history of frequency, urgency, hesitancy or nocturia. NEUROLOGIC: Denies history of numbness, tingling, tremor or weakness. PSYCHIATRIC: No history of panic, anxiety or depression. ENDOCRINE: No history of heat or cold intolerance, polyuria or polydipsia. EXTREMITIES: Denies muscle weakness, joint pain, pain on walking or stiffness. PHYSICAL EXAMINATION: VITALS: Within normal limits and are stable. GENERAL: No apparent distress. Alert and oriented. HEENT: Normal cephalic atraumatic, external auditory canals are patent. Eyes: Extraocular muscles are intact, pupils are equally round and reactive to light and accommodation. MUSCULOSKELETAL: Well developed, well nourished, good range of motion. ENDOCRINE: No thyromegaly was palpated. LYMPHATICS: No cervical chain or axillary nodes were noted. HEMATOPOIETIC: No bruising. NECK: Supple, no JVD, no thyromegaly was noted. LUNGS: Clear to auscultation in all lung gonzalez without rhonchi or wheezing. HEART: RRR, S1, S2 present. Peripheral pulses intact, no obvious murmurs were noted. ABDOMEN: She has a left lower quadrant colostomy. EXTREMITIES: Without any cyanosis, clubbing, or edema. Pedal pulses intact, Homans sign is negative. NEUROLOGIC: Normal speech, normal tone. A and O x 3, moves all extremities, no obvious focal deficits. PSYCHIATRIC: Normal affect, normal mood. Stable. SKIN: No ulcerations or rashes, good skin turgor, no jaundice. VASCULAR: Good capillary refill, neurovascular bundle appears to be intact. DIAGNOSTIC DATA: Imaging including CAT scan of the abdomen and ultrasound of the abdomen are showing gallstones without cholecystitis. LABORATORY DATA: White count 5, hemoglobin 11, platelets 156. Electrolytes are normal other than a BUN of 24 and a creatinine of 1.7. Her creatinine was 2 last night. Troponin 0.028, then 0.036, then 0.058. Lipase 314. ASSESSMENT AND PLAN: Gallstones and elevated troponin in a middle-aged female who has chronic renal insufficiency and the above-mentioned comorbidities. For now, we are doing cardiac monitoring, serial enzymes, serial EKGs. We have consulted Cardiology and Dr. Garcia. Home meds, DVT prophylaxis, IV fluids, n.p.o. for now. Trend labs, p.r.n. Tylenol. KATHY SCHULTZ DO DR: KHALIF/eduardo JOB#: [id number] / [id number]
--- NOTE | 2020-12-12 11:39 | NUR ---
SS following for discharge planning. SS reviewed pt chart and discussed with pt RN. Pt is from home with spouse and is currently on room air. Cardiology consulted. ECHO ordered. Surgery consulted for gall stones. SS will continue to follow for discharge planning.
[2020-12-12 11:52] LABS: CHOLESTEROL/HDL RATIO 2.1
--- NOTE | 2020-12-12 12:06 | PDOC2 ---
NAHUM WILSON SENIOR MEDICAL DIRECTOR 12/12/20 1206: CARDIAC CONSULT DATE OF CONSULT Date of Consult DATE: 12/12/20 TIME: 12:02 REASON FOR CONSULT Reason for Consult: elevated troponin REFERRING PHYSICIAN Referring Physician: Jamie SOURCE Source: Chart review, Patient HISTORY OF PRESENT ILLNESS HISTORY OF PRESENT ILLNESS This is a pleasant 80 yo female admitted for complains of right side abdominal pain. Reports that this started around 2:30 yesterday described as sharp right side abdominal pain. No nausea or vomiting. She has a colostomy from resection due to ulcerative colitis. Denies any fever, chills and no recent exposure to covid-19. Further imaging demonstrate cholelithiasis without any inflammation. Denies any chest pain, SOA. Consult is for mild troponin elevation. Reports that her BP at home is normal and actually goes up when she goes to a doctors office. She does not take any BP meds. She walks about 1.2 miles and tried to do this everyday but it has been raining and did her brisk walk lasting about 20 minutes about 3 days ago with no difficulty. No ALVARADO no exertional chest pain. She has CKD and reported 26% renal function and sees Dr. Palmer as her director skills. No recent falls or injury. She does have this intermittent palpitations at night but only last for a few seconds at a time. PAST MEDICAL HISTORY Cardiovascular: Syncope, Other (SSS) Pulmonary: Asthma CENTRAL NERVOUS SYSTEM: Other (No pertinent history) GI: Inflam bowel disease (ulcerative colitis) Heme/Onc: Anemia NOS Hepatobiliary: No pertinent hx Psych: No pertinent hx Musculoskeletal: Osteoarthritis Rheumatologic: No pertinent hx Infectious disease: No pertinent hx ENT: No pertinent hx Renal/: Chronic renal insuff (CKD4), UTI Endocrine: No pertinent hx Dermatology: No pertinent hx PAST SURGICAL HISTORY Past Surgical History: Pacemaker, Appendectomy, Hysterectomy, Colon Resection (wit colostomy) FAMILY HISTORY Family History: Coronary Artery Disease (brother at 55) SOCIAL HISTORY Smoke: No ALCOHOL: none Drugs: None Lives: with Family ALLERGIES ALLERGIES: Coded Allergies: No Known Drug Allergies (Unverified , 12/11/20) ROS Review of System 14 point ROS evaluated with pertinent positives noted per HPI PHYSICAL EXAM General: Alert, Oriented X3, Cooperative, No acute distress HEENT: Atraumatic, Mucous membr. moist/pink Lungs: Clear to auscultation, Normal air movement Heart: Regular rate (SR), Normal S1, Normal S2, No murmurs Abdomen: Soft, No tenderness, Other (colostomy) Extremities: No cyanosis, No edema Skin: No breakdown, No significant lesion Neuro: Normal speech, Sensation intact Psych/Mental Status: Mental status NL, Mood NL MUSCULOSKELETAL: Osteoarthritic changes both hands VITALS/I&O VITALS/I&O: Vital Signs Date Time Temp Pulse Resp B/P (MAP) Pulse Ox O2 Delivery O2 Flow Rate FiO2 12/12/20 11:00 98.7 68 16 134/67 (89) 96 Room Air 98.7 I & O 12/11/20 12/11/20 12/12/20 15:00 23:00 07:00 Output Total 300 ml Balance -300 ml LABS Lab: Laboratory Tests Test 12/11/20 18:23 12/11/20 19:05 12/11/20 21:16 12/12/20 08:55 White Blood Count 5.8 x10^3/uL (4.0-11.0) Red Blood Count 3.85 x10^6/uL (3.50-5.40) Hemoglobin 11.2 g/dL (12.0-15.5) L Hematocrit 33.5 % (36.0-47.0) L Mean Corpuscular Volume 87 fL (79-100) Mean Corpuscular Hemoglobin 29 pg (25-35) Mean Corpuscular Hemoglobin Concent 33 g/dL (31-37) Red Cell Distribution Width 13.6 % (11.5-14.5) Platelet Count 156 x10^3/uL (140-400) Neutrophils (%) (Auto) 66 % (31-73) Lymphocytes (%) (Auto) 22 % (24-48) L Monocytes (%) (Auto) 9 % (0-9) Eosinophils (%) (Auto) 2 % (0-3) Basophils (%) (Auto) 1 % (0-3) Neutrophils # (Auto) 3.8 x10^3/uL (1.8-7.7) Lymphocytes # (Auto) 1.3 x10^3/uL (1.0-4.8) Monocytes # (Auto) 0.5 x10^3/uL (0.0-1.1) Eosinophils # (Auto) 0.1 x10^3/uL (0.0-0.7) Basophils # (Auto) 0.0 x10^3/uL (0.0-0.2) Sodium Level 133 mmol/L (136-145) L 137 mmol/L (136-145) Potassium Level 4.3 mmol/L (3.5-5.1) 3.9 mmol/L (3.5-5.1) Chloride Level 98 mmol/L (98-107) 103 mmol/L (98-107) Carbon Dioxide Level 27 mmol/L (21-32) 26 mmol/L (21-32) Anion Gap 8 (6-14) 8 (6-14) Blood Urea Nitrogen 31 mg/dL (7-20) H 24 mg/dL (7-20) H Creatinine 2.0 mg/dL (0.6-1.0) H 1.7 mg/dL (0.6-1.0) H Estimated GFR (Cockcroft-Gault) 23.9 28.8 BUN/Creatinine Ratio 16 (6-20) Glucose Level 104 mg/dL (70-99) H 92 mg/dL (70-99) Calcium Level 8.2 mg/dL (8.5-10.1) L 8.4 mg/dL (8.5-10.1) L Total Bilirubin 0.5 mg/dL (0.2-1.0) Aspartate Amino Transferase (AST) 32 U/L (15-37) Alanine Aminotransferase (ALT) 25 U/L (14-59) Alkaline Phosphatase 63 U/L (46-116) Troponin I Quantitative 0.028 ng/mL (0.000-0.055) 0.036 ng/mL (0.000-0.055) 0.058 ng/mL (0.000-0.055) Total Protein 6.9 g/dL (6.4-8.2) Albumin 3.9 g/dL (3.4-5.0) Albumin/Globulin Ratio 1.3 (1.0-1.7) Lipase 314 U/L (73-393) Urine Collection Type Unknown Urine Color Yellow Urine Clarity Cloudy Urine pH 5.0 (<5.0-8.0) Urine Specific [place] 1.010 (1.000-1.030) Urine Protein 30 mg/dL (NEG-TRACE) Urine Glucose (UA) Negative mg/dL (NEG) Urine Ketones (Stick) Negative mg/dL (NEG) Urine Blood Small (NEG) Urine Nitrite Negative (NEG) Urine Bilirubin Negative (NEG) Urine Urobilinogen Dipstick 0.2 mg/dL (0.2 mg/dL) Urine Leukocyte Esterase Negative (NEG) Urine RBC 1-2 /HPF (0-2) Urine WBC Occ /HPF (0-4) Urine Squamous Epithelial Cells Many /LPF Urine Bacteria Few /HPF (0-FEW) Urine Mucus Slight /LPF Triglycerides Level 64 mg/dL (0-150) Cholesterol Level 189 mg/dL (0-200) LDL Cholesterol, Calculated 85 mg/dL (0-100) VLDL Cholesterol, Calculated 13 mg/dL (0-40) Non-HDL Cholesterol Calculated 98 mg/dL (0-129) HDL Cholesterol 91 mg/dL (40-60) H Cholesterol/HDL Ratio 2.1 Laboratory Tests 12/11/20 18:23 Laboratory Tests 12/11/20 18:23 12/12/20 08:55 ASSESSMENT/PLAN ASSESSMENT/PLAN 1. Abdominal pain with cholelithiasis: no further pain so far 2. CKD3-4 3. PPM: medtronic. interrogation revealed intermittent very brief episodes of NSVT in the last few months with last recorded episode 12/07, normal device function otherwise. No AFIB 4. Mild troponin elevation:peaked at 0.05. Suspect demand mediated with associated renal insufficiency and NSVT. Doubt ACS 5. Hx of ulcerative colitis 6. HTN: initially labile, now controlled. White coat syndrome? Recommendations 1. TTE and if no significant changes then may DC per cardiac perspective. Given above risk factors will proceed with outpt lexiscan this Friday for further risk stratification 2. Start on low dose ECASA 81 mg daily and toprol 12.5 mg daily. Lipids are excellent, no need for statin at this time. HBPM, Adjust BP regimen as outpt per trend 3. Follow up on January 25 8:30 AM KATARINA RUGGIERO MD 12/12/20 6167: CARDIAC CONSULT ASSESSMENT/PLAN ASSESSMENT/PLAN Patient seen and examined. Agree with above nurse practitioner note. No clear etiology of her elevated troponin is evident. She definitely merits fu rther evaluation and given her normal LV function we will plan for outpatient ischemic evaluation as the patient remains chest pain-free without any significant troponin elevation and her EKG is unremarkable. Supportive care. NAHUM WILSON APRN Dec 12, 2020 12:06 KATARINA RUGGIERO MD Dec 12, 2020 17:11
[2020-12-12] MEDS ORDERED: ASPIRIN ENTERIC COATED 81 MG TABLET.DR. PO SCH (13:00)
[2020-12-12] MEDS ORDERED: METOPROLOL SUCC 24HR ER 25 MG TAB.ER.24H. PO SCH (13:00)
[2020-12-12 15:00] VITALS: BP 134/77
--- NOTE | 2020-12-12 16:26 | CARD ---
MR#: [id number] Date of Study: 12/12/2020 Ordering Physician: NAHUM WILSON, Referring Physician: NAHUM WILSON Tech: Laxmi Barraza [facility] APPROVED REPORT EXAM: Two-dimensional and M-mode echocardiogram with Doppler and color Doppler. Other Information Quality : AverageHR: 75bpm Rhythm : NSR INDICATION Chest Pain Surgery/Intervention ICD/Pacemaker: RISK FACTORS Hypertension 2D DIMENSIONS RVDd3.3 (2.9-3.5cm)Left Atrium(2D)3.2 (1.6-4.0cm) IVSd1.1 (0.7-1.1cm)Aortic Root(2D)3.9 (2.0-3.7cm) LVDd4.9 (3.9-5.9cm)LVOT Diameter2.7 (1.8-2.4cm) PWd1.1 (0.7-1.1cm)LVDs3.4 (2.5-4.0cm) FS (%) 29.9 %SV64.5 ml LVEF(%)56.9 (>50%) Aortic Valve AoV Peak Kaleb.137.7cm/sAoV VTI23.5cm AO Peak GR.7.6mmHgLVOT Peak Kaleb.92.4cm/s AO Mean GR.4mmHgAVA (VMAX)3.73cm2 AI P 1/2 Epau906zo Mitral Valve MV E Fcbltnoc83.0cm/sMV DECEL JVZR597ob MV A Lqqztrrc49.3cm/sE/A Ratio0.5 Pulmonary Valve PV Peak Xhuzhkdw19.6cm/s LEFT VENTRICLE The left ventricle is normal size. There is borderline to mild concentric left ventricular hypertroph y. The left ventricular systolic function is normal and the ejection fraction is within normal range. Estimated ejectiojn fraction 50-55%. There is normal LV segmental wall motion. Transmitral Doppler f low pattern is Grade I-abnormal relaxation pattern. No left ventricle thrombus noted on this study. RIGHT VENTRICLE The right ventricle is normal size. There is normal right ventricular wall thickness. The right ventr icular systolic function is normal. There is a pacing lead noted in the RV/RA ATRIA The left atrium size is normal. The right atrium size is normal. The interatrial septum is intact wit h no evidence for an atrial septal defect or patent foramen ovale as noted on 2-D or Doppler imaging. AORTIC VALVE The aortic valve is normal in structure and function. Doppler and Color Flow revealed mild to moderat e aortic regurgitation. There is no significant aortic valvular stenosis. MITRAL VALVE The mitral valve is normal in structure and function. There is no evidence of mitral valve prolapse. There is no mitral valve stenosis. Doppler and Color-flow revealed mild mitral regurgitation. TRICUSPID VALVE The tricuspid valve is normal in structure and function. Doppler and Color Flow revealed mild tricusp id regurgitation. Estimated PAP 25 mmHg. There is no tricuspid valve stenosis. PULMONIC VALVE Doppler and Color Flow revealed trace pulmonic valvular regurgitation. There is no pulmonic valvular stenosis. GREAT VESSELS The aortic root is normal in size. The IVC is normal in size and collapses >50% with inspiration. PERICARDIAL EFFUSION There is no evidence of significant pericardial effusion. Critical Notification Critical Value: No <Conclusion> The left ventricular systolic function is normal and the ejection fraction is within normal range. E stimated ejectiojn fraction 50-55%. There is normal LV segmental wall motion. There is a pacing lead noted in the RV/RA Doppler and Color Flow revealed mild to moderate aortic regurgitation. Signed by : Coleman Starks, Electronically Approved : 12/12/2020 16:25:56
[2020-12-12] MEDS ORDERED: METO-239 PO (17:41)
[2020-12-12] MEDS ORDERED: ACET325T21 PO (17:41)
[2020-12-12] MEDS ORDERED: ASPI-886 PO (17:41)
[2020-12-12] MEDS ORDERED: MULTIVITAMIN I-VITE TABLET. PO SCH (18:00)
--- NOTE | 2020-12-12 18:21 | NUR ---
Discharge Note: LORA EUGENE [address] Discharge instructions and discharge home medications reviewed with Patient and a copy given. All questions have been answered and understanding verbalized. The following instructions and handouts were given: Metoprolol, Taking your own blood pressure, chest pain, troponin markers, cholecystosis Patient discharged to home with self care via and private vehicle. IV out, monitor placed at nurses station.
--- NOTE | 2020-12-12 18:28 | DS ---
DATE OF DISCHARGE: 12/12/2020 ADMISSION DIAGNOSES: Elevated troponin and gallstones. DISCHARGE DIAGNOSES: Resolving elevated troponin secondary to chronic renal insufficiency and chronic gallstones. CONSULTS: Cardiology and General Surgery. PROCEDURES: None. HOSPITAL COURSE: The patient is a pleasant middle-aged female who presented with some abdominal pain, chest pain and was noted to have some elevations of her troponin to 0.028. We did consult Cardiology. We incidentally found some gallstones. We consulted General Surgery. Basically, the patient is doing well. The consultants felt like she can go home. We are going to follow her closely as an outpatient and will be discharged to home. DISPOSITION: Home. ACTIVITY: As tolerated. DIET: Low sodium. MEDICATIONS: Metoprolol 12.5 a day, aspirin 81 a day, and Tylenol. TOTAL TIME: 32 minutes. KATHY SCHULTZ DO DR: KHALIF/eduardo JOB#: [id number] / [id number]
[2020-12-12] MEDS ORDERED: ESTROGENS, CONJ VAGINAL CREAM 30GM TUBE. VG SCH (21:00)
== END 2020-12-12 18:07 | disposition home or self-care (01) | DRG 445 ==
LOC: ER 17:13 → ED HOLD 21:54 → 2 NORTH 23:36
PROVIDERS: ADMIT Family Medicine; ATTEND Family Medicine
DX: K80.20 Calculus of gallbladder without cholecystitis without obstruction (principal); N18.4 Chronic kidney disease, stage 4 (severe); R77.8 Other specified abnormalities of plasma proteins; R74.8 Abnormal levels of other serum enzymes; M19.90 Unspecified osteoarthritis, unspecified site; I49.5 Sick sinus syndrome; J45.909 Unspecified asthma, uncomplicated; I12.9 Hypertensive chronic kidney disease with stage 1 through stage 4 chronic kidney disease, or unspecified chronic kidney disease; Z90.710 Acquired absence of both cervix and uterus; Z93.3 Colostomy status; Z90.49 Acquired absence of other specified parts of digestive tract; Z95.0 Presence of cardiac pacemaker; Z87.440 Personal history of urinary (tract) infections; Z82.3 Family history of stroke; Z82.49 Family history of ischemic heart disease and other diseases of the circulatory system; Z83.3 Family history of diabetes mellitus
CPT/HCPCS: 36415; 74176; 76705; 80048; 80053; 80061; 81001; 83690; 83880; 84443; 84484; 85025; 93005; 93306; 99285; G0378

== ENCOUNTER → 2020-12-15 | Outpatient (CLI) | payer MEDICARE, BC ==
[2020-12-12 13:59] VITALS: BP_SYST 134
[2020-12-12 15:00] VITALS: BP_DIAS 77
[~2020-12-15] MED LIST changes: +ACET325T21 PO; +ASPI-886 PO; +METO-239 PO; +REGADENOSON 0.4 MG/5 ML DISP.SYRIN. IV ONE; +estrogen cream VAG
--- NOTE | 2020-12-15 17:38 | RAD ---
MR#: [id number] Date of Study: 12/15/2020 Ordering Physician: JANNET LEYVA, Referring Physician: PITA DON Tech: RT Amarjit (R) (N) APPROVED REPORT Test Type: Pharmacological Stress Nurse/Tech: Barbara Berger R.N. Test Indications: near syncope Cardiac History: pacemaker Medications: see ehr Medical History: see ehr Resting ECG: SR, pt has pacemaker no spikes seen Resting Heart Rate: 84 bpm Resting Blood Pressure: 125/64mmHg Pretest Chest Pain: No chest pain Nurse/Tech Notes lungs cta, heart tones regular Consent: The procedure was explained to the patient in lay terms. Informed consent was witnessed. Thor eout was entered into [employer]. History and Stress Test performed by [facility]. Details Pharmacologic stress testing was performed using 0.4mg per 5ml of regadenoson given intravenously ove r 7-10 seconds. Stress Symptoms No chest pain or symptoms. POST EXERCISE Reason for Termination: Infusion complete Target HR: No Max HR: 114 bpm Max Blood Pressure: 137/64mmHg Blood Pressure response to exercise: Normal blood pressure response during stress. Chest Pain: No. Arrhythmia: No. ST Change: No. INTERPRETATION Stress EKG Conclusion: No evidence of stress induced EKG changes. Imaging Protocol IMAGE PROTOCOL: Rest Tc-99m/stress Tc-99m 1 day Rest: Stress: Viability: Radiopharm.Tc99m LlszczqmiFx26v Sestamibi Dose10.8mCi 31.4mCi Duration 15min. 10min. Img Date 12/15/2020 12/15/2020 Inj-Img Uxgl52ckv. 60min. Rest Admin Site:IV - Left AntecubitalAdministrator:RT Parris Ocasio)(N) Stress Admin Site: IV - Left AntecubitalAdministrator: [facility] STRESS DATA End Diast. Vol.136.0mlAv. Heart Rate81.0bpm End Syst. Vol.62.0mlCO Index BSA0.0L/min Myocardial Fhpz244.0gEject. Shxetgjg60.0% Stress Rates Pk. Fill Rate2.57EDV/secLVtime Pk. Fill 222.18msec Pk. Empty Rate2.57ESV/secLVtime Pk. Kxvpt862.36msec 3 Pk. Fill0.45EDV/sec Stress Scores Regional WT0.00Summed WT5.00 Regional WM0.00Summed WM10.00 The rest and stress images show normal perfusion, normal contraction and thickening. LV Perf. Quant 17 Seg. SSS6.00 17 Seg. SRS2.00 17 Seg. SDS4.00 Stress Defect Extent (% LAD)13.80Rest Defect Extent (% LAD)1.30Rev. Defect Extent (% LAD)9.40 Stress Defect Extent (% LCX) 17.50Rest Defect Extent (% LCX)0.00Rev. Defect Extent (% LCX)17.50 Stress Defect Extent (% RCA)0.00Rest Defect Extent (% RCA)0.00Rev. Defect Extent (% RCA)0.00 Stress Defect Extent (% MODESTO)9.60Rest Defect Extent (% MODESTO)1.50Rev. Defect Extent (% MODESTO)6.70 Other Information Quality:Average Risk Assessment: Low Risk Conclusion 1. No evidence of stress induced EKG changes 2. Normal perfusion at stress/rest. 3. Low normal EF at 54% 4. Low risk study overall Signed by : Cloeman Starks, Electronically Approved : 12/15/2020 17:38:21
== END ==
LOC: NM 09:03
PROVIDERS: ATTEND Internal Medicine Cardiovascular Disease
DX: R55 Syncope and collapse (principal); Z95.0 Presence of cardiac pacemaker
CPT/HCPCS: 78452; 93017; A9500; J2785

== ENCOUNTER 2021-06-10 14:52 | Emergency (ER) | payer MEDICARE, BC ==
[~2021-06-10] VITALS: Ht 167.6 cm; Wt 71.8 kg
[~2021-06-10 14:52] MED LIST changes: -LACT1CAP25 PO; +LACT1CAP39 PO; -REGADENOSON 0.4 MG/5 ML DISP.SYRIN. IV ONE
--- NOTE | 2021-06-10 15:52 | PHYS DOC ---
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 Patient denies any chest pain or shortness of breath. She states she had a cough and was seen at urgent care 2 weeks ago and diagnosed with a sinus infection. Patient denies any fever. 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 [] Eyes: Denies change in visual acuity. [] HENT: Reports blood test to the mouth. Reports generalized weakness. Denies nasal congestion or sore throat. [] Respiratory: Denies cough or shortness of breath. [] Cardiovascular: Denies chest pain or edema. [] GI: Denies abdominal pain, nausea, vomiting, bloody stools or diarrhea. [] : Denies dysuria. [] Musculoskeletal: Denies back pain or joint pain. [] Integument: Denies rash. [] Neurologic: Denies headache, focal weakness or sensory changes. [] Psychiatric: Denies depression or anxiety. 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 [] HENT: Normocephalic, atraumatic, bilateral external ears normal, oropharynx moist, no oral exudates, nose normal. [] Eyes: PERRLA, EOMI, conjunctiva normal, no discharge. [] Neck: Normal range of motion, no tenderness, supple, no stridor. [] Cardiovascular:Heart rate regular rhythm, no murmur [] Lungs & Thorax: Bilateral breath sounds clear to auscultation [] Abdomen: Bowel sounds normal, soft, no tenderness, no masses, no pulsatile masses. [] Skin: Warm, dry, no erythema, no rash. [] Back: No tenderness, no CVA tenderness. [] Extremities: No tenderness, no cyanosis, no clubbing, ROM intact, no edema. [] Neurologic: Alert and oriented X 3, normal motor function, normal sensory function, no focal deficits noted. Cranial nerves II through XII intact Psychologic: Affect normal, judgement normal, mood normal. 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 Comparison: CT 05/07/2020 Clinical Indication: Reason: weakness / Spl. Instructions: / History: Technical factors: Contiguous 5 mm axial images of the head were obtained from the skullbase to the vertex. No contrast was administered. Findings: There is no apparent intracranial mass, hemorrhage or abnormal extra-axial fluid collection. Patchy low attenuation in the cerebral white matter is consistent with chronic small vessel ischemic injury and is similar to the prior exam. No definite acute abnormality is seen in the brain. The ventricles and basilar cisterns are normally positioned. The sinuses and mastoid air cells are clear. Impression: No evidence of acute intracranial abnormality. Electronically signed by: Harjit Rhodes Jr., MD (06/10/2021 4:01 PM) [id number] DICTATED and SIGNED BY: HARJIT RHODES Jr, MD DATE: 06/10/21 [id number] PROCEDURE: PORTABLE CHEST 1V XR CHEST 1V Clinical History: Reason: weakness / Spl. Instructions: / History: Technique: AP view of the chest was obtained at 06/10/2021 3:55 PM. Comparison: May 10, 2020. Findings: The heart is moderately enlarged. The left-sided pacemaker is again seen. The pulmonary vessels appear normal. The lungs and pleural margins are clear. Impression: Moderate cardiomegaly. Stable appearance of the chest. Electronically signed by: Josemanuel Wagoner III, MD (06/10/2021 4:03 PM) [id number] DICTATED and SIGNED BY: JOSEMANUEL WAGONER III, MD DATE: 06/10/21 [id number] (BEN HESS APRN) Course & Med Decision Making: Course & Med Decision Making Pertinent Labs and Imaging studies reviewed. (See chart for details) This is a 81-year-old female patient presented to the ED today with generalized weakness and bad taste to her mouth, symptoms for 3 weeks. She had a cough 2 weeks ago which has subsided. CT of the head is negative, chest x-ray is negative. EKG is negative CBC with a normal WBC, hemoglobin 11.3 with hematocrit of 33.8, this is around her baseline. Creatinine 2.0, BUN 28, patient has history of kidney disease and this is around her baseline. Negative rapid Covid test. Urine analysis negative for infection. Blood pressure was elevated on arrival to the ED 189/91, it came down to 174/80, patient states this is not unusual for cough to have elevated blood pressure when she is in the emergency room. Patient declined treatment. She states she will follow-up with her own PCP and they can recheck it in the office and see if it still elevated or not. She was discharged to home. 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 She will follow-up with the machinist apprentice and PCP in the course of this week (BEN HESS APRN) Course & Med Decision Making I have reviewed and was available for consultation in the emergency department for this patient that was seen by midlevel provider. Agree with plan. Jose Ivy DO (JOSE IVY DO) [employer] Disclaimer: [employer] Disclaimer: This electronic medical record was generated, in whole or in part, using a voice recognition dictation system. (BEN HESS APRN) Departure Departure Impression: Primary Impression: Chronic kidney disease Qualified Codes: N18.4 - Chronic kidney disease, stage 4 (severe) Additional Impressions: Generalized weakness Elevated blood pressure reading Disposition: HOME / SELF CARE / HOMELESS Condition: STABLE Referrals: ANDREAS VARNER DO (PCP) Follow-up in the course of this week STEVE CALZADA MD Follow-up in the course of this week Patient Instructions: Hypertension, Kidney Failure, Hyxk-sq-Ndeh Additional Instructions: You were evaluated in the emergency room, we did a CT of your head, and chest x- ray,both were negative for any acute findings. Your lab work was negative for any acute findings. Your Covid rapid test was negative. Your blood pressure was running high in the emergency room, we recommend you contact your primary care doctor and machinist apprentice and follow-up in the course of this week BEN HESS APRN Jun 10, 2021 15:52 JOSE IVY DO Jun 10, 2021 18:49
--- NOTE | 2021-06-10 16:04 | RAD ---
CT HEAD/BRAIN WO dated 06/10/2021 3:44 PM. Comparison: CT 05/07/2020 Clinical Indication: Reason: weakness / Spl. Instructions: / History: Technical factors: Contiguous 5 mm axial images of the head were obtained from the skullbase to the vertex. No contrast was administered. Findings: There is no apparent intracranial mass, hemorrhage or abnormal extra-axial fluid collection. Patchy l ow attenuation in the cerebral white matter is consistent with chronic small vessel ischemic injury a nd is similar to the prior exam. No definite acute abnormality is seen in the brain. The ventricles a nd basilar cisterns are normally positioned. The sinuses and mastoid air cells are clear. Impression: No evidence of acute intracranial abnormality. Electronically signed by: Morgan Rhodes Jr., MD (06/10/2021 4:01 PM) [id number]
--- NOTE | 2021-06-10 16:05 | RAD ---
XR CHEST 1V Clinical History: Reason: weakness / Spl. Instructions: / History: Technique: AP view of the chest was obtained at 06/10/2021 3:55 PM. Comparison: May 10, 2020. Findings: The heart is moderately enlarged. The left-sided pacemaker is again seen. The pulmonary vessels appea r normal. The lungs and pleural margins are clear. Impression: Moderate cardiomegaly. Stable appearance of the chest. Electronically signed by: Keith Car III, MD (06/10/2021 4:03 PM) [id number]
[2021-06-10 16:39] LABS: BASO % 1 % (0-3); EOS # 0.1 x10^3/uL (0.0-0.7); EOS % 2 % (0-3); HEMATOCRIT 33.8 % (36.0-47.0); HEMOGLOBIN 11.3 g/dL (12.0-15.5); LYMPH # 1.2 x10^3/uL (1.0-4.8); LYMPH % 21 % (24-48); MEAN CORPUSCULAR HEMOGLOBIN 30 pg (25-35); MEAN CORPUSCULAR HGB CONC 33 g/dL (31-37); MEAN CORPUSCULAR VOLUME 89 fL (79-100); MONO # 0.5 x10^3/uL (0.0-1.1); MONO % 9 % (0-9); NEUT # 3.9 x10^3/uL (1.8-7.7); NEUT % 68 % (31-73); PLATELET COUNT 159 x10^3/uL (140-400); RED BLOOD COUNT 3.81 x10^6/uL (3.50-5.40); RED CELL DISTRIBUTION WIDTH 13.6 % (11.5-14.5); WHITE BLOOD COUNT 5.7 x10^3/uL (4.0-11.0)
[2021-06-10 17:27] LABS: BILIRUBIN,URINE NEGATIVE (NEG); CLARITY,URINE CLEAR; COLOR,URINE YELLOW; NITRITE,URINE NEGATIVE (NEG); PH,URINE 5.5 (<5.0-8.0); PROTEIN,URINE 30 mg/dL (NEG-TRACE); UROBILINOGEN,URINE 0.2 mg/dL (0.2 mg/dL)
[2021-06-10 17:34] LABS: BARBITURATES NEG (NEG); BENZODIAZEPINES NEG (NEG); CANNABINOIDS NEG (NEG); COCAINE NEG (NEG); METHADONE NEG (NEG); OPIATES NEG (NEG); PHENCYCLIDINE NEG (NEG)
[2021-06-10 17:35] LABS: AMPHETAMINE/METHAMPHETAMINE NEG (NEG); BACTERIA,URINE FEW /HPF (0-FEW); RBC,URINE OCC /HPF (0-2)
[2021-06-10 17:47] LABS: CALCIUM 8.9 mg/dL (8.5-10.1); GFR 23.9; POTASSIUM 4.7 mmol/L (3.5-5.1)
[2021-06-10 17:52] LABS: ALBUMIN/GLOBULIN RATIO 1.3 (1.0-1.7); MAGNESIUM 2.2 mg/dL (1.8-2.4); TOTAL BILIRUBIN 0.4 mg/dL (0.2-1.0); TOTAL PROTEIN 7.2 g/dL (6.4-8.2)
[2021-06-10 18:35] VITALS: BP 179/98
--- NOTE | 2021-06-10 18:54 | EKG ---
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
--- NOTE | 2021-06-12 10:01 | NUR ---
IP: Informed pt of negative covid test. Pt verbalized understanding.
== END 2021-06-10 18:40 | disposition home or self-care (01) ==
LOC: ER 14:52
DX: N18.4 Chronic kidney disease, stage 4 (severe) (principal); Z20.822 Contact with and (suspected) exposure to COVID-19; R53.1 Weakness; R03.0 Elevated blood-pressure reading, without diagnosis of hypertension; J45.909 Unspecified asthma, uncomplicated; Z95.0 Presence of cardiac pacemaker; Z90.89 Acquired absence of other organs; Z90.710 Acquired absence of both cervix and uterus
CPT/HCPCS: 36415; 70450; 71045; 80053; 80307; 81001; 83735; 83880; 84443; 84484; 85025; 87426; 93005; 99285; U0003; U0005

== ENCOUNTER → 2022-01-23 | Outpatient (CLI) | payer MEDICARE, BC ==
--- NOTE | 2022-01-23 16:17 | CARD ---
MR#: [id number] Date of Study: 01/23/2022 Ordering Physician: JANNET PINEDA, Referring Physician: Brent DON: Keith Amado [facility]UST APPROVED REPORT EXAM: Two-dimensional and M-mode echocardiogram with Doppler and color Doppler. Other Information Quality : AverageHR: 75bpm Rhythm : NSR INDICATION Sick Sinus Syndrome Surgery/Intervention Pacemaker: 2D DIMENSIONS Left Atrium(2D)4.2 (1.6-4.0cm)IVSd1.0 (0.7-1.1cm) Aortic Root(2D)4.1 (2.0-3.7cm)LVDd5.2 (3.9-5.9cm) LVOT Diameter2.3 (1.8-2.4cm)PWd1.1 (0.7-1.1cm) LA Ssarng885 (18-58mL)LVDs3.8 (2.5-4.0cm) FS (%) 27.5 %SV70.1 ml LVEF(%)53.0 (>50%) Aortic Valve AoV Peak Kaleb.138.1cm/sAoV VTI29.5cm AO Peak GR.7.6mmHgLVOT Peak Kaleb.67.5cm/s LVOT VTI 16.30cmAO Mean GR.4mmHg ROHAN (VMAX)1.44ar9PMN (VTI)2.39cm2 AI P 1/2 Cnrj579yb Mitral Valve MV E Hfiwdgim06.8cm/sMV E Peak Gr.35mmHg MV DECEL XOLE627hkEH A Lhgpgrsb76.4cm/s MV XCP12eiH/A Ratio0.8 MVA (PHT)4.95cm2 TDI E/Lateral E'12.2E/Medial E'13.9 Pulmonary Valve PV Peak Lfazwgwe52.6cm/sPV Peak Grad.2mmHg Tricuspid Valve TR P. Wjtlrpzk811nc/sTR Peak Gr.19mmHg Pulmonary Vein S1 Nuiguprm59.5cm/sD2 Dfmtyfwv37.0cm/s LEFT VENTRICLE The left ventricle is normal size. There is normal left ventricular wall thickness. The left ventricu lar systolic function is normal. The ejection fraction is estimated at 55%. There is normal LV segmen carmelina wall motion. Transmitral Doppler flow pattern is Grade I-abnormal relaxation pattern. No left jonna tricle thrombus noted on this study. There is no ventricular septal defect visualized. There is no le ft ventricular aneurysm. There is no mass noted in the left ventricle. RIGHT VENTRICLE The right ventricle is normal size. There is normal right ventricular wall thickness. The right ventr icular systolic function is normal. ATRIA The left atrium is mildly dilated. The right atrium size is normal. AORTIC VALVE The aortic valve is mildly sclerotic. The aortic valve is trileaflet. Doppler and Color Flow revealed mild aortic regurgitation. There is no significant aortic valvular stenosis. There is no aortic valv ular vegetation. MITRAL VALVE The mitral valve is thickened but opens well. There is no evidence of mitral valve prolapse. There is no mitral valve stenosis. Doppler and Color-flow revealed mild mitral regurgitation. TRICUSPID VALVE The tricuspid valve is normal in structure and function. Doppler and Color Flow revealed trace tricus pid regurgitation. There is no tricuspid valve prolapse or vegetation. There is no tricuspid valve st enosis. PULMONIC VALVE The pulmonary valve is normal in structure and function. Doppler and Color Flow revealed no pulmonic valvular regurgitation. There is no pulmonic valvular stenosis. GREAT VESSELS The aortic root is mildly dilated (4.1 cm) The ascending aorta is normal in size. The pulmonary arter y is normal. The IVC is dilated. PERICARDIAL EFFUSION There is no pleural effusion. There is no evidence of significant pericardial effusion. Critical Notification Critical Value: No <Conclusion> The left ventricular systolic function is normal. The ejection fraction is estimated at 55%. There is normal LV segmental wall motion. Transmitral Doppler flow pattern is Grade I-abnormal relaxation pattern. Pacer wires noted RA/RV. Mild aortic regurgitation. Mild mitral regurgitation. Trace tricuspid regurgitation. There is no evidence of significant pericardial effusion. Signed by : Jannet Pineda, Electronically Approved : 01/23/2022 16:16:49
== END ==
LOC: ECHO 10:16
PROVIDERS: ATTEND Internal Medicine Cardiovascular Disease
DX: I08.0 Rheumatic disorders of both mitral and aortic valves (principal); I49.5 Sick sinus syndrome
CPT/HCPCS: 93306; C8929